=== PATIENT | male | born 1960 | race Caucasian/White ===

== ENCOUNTER 2016-10-26 21:35 | Emergency (ER) | payer OTHER ==
[2016-10-26 21:44] VITALS: RESP 18
[2016-10-27] MEDS ORDERED: SODIUM CHLORIDE 0.9% 1,000 ML IV STA (00:22)
[2016-10-27] MEDS ORDERED: ONDANSETRON 4 MG/2 ML VIAL IVP STA (00:22)
[2016-10-27] MEDS ORDERED: KETOROLAC 30 MG/ML 1 ML VIAL IVP STA (00:22)
[2016-10-27 00:58] LABS: Appearance,Urine Clear (Clear); Bilirubin,Urine Negative (Negative); Glucose,Urine (UA) Negative (Negative); Ketones,Urine Negative (Negative); Leukocyte Esterase,Urine Negative (Negative); Nitrite,Urine Negative (Negative); Protein,Urine Negative (Negative); UA Billing (MACRO vs. MICRO) CHEM; Urobilinogen,Urine <2.0 mg/dL (<2.0)
--- NOTE | 2016-10-27 00:58 | XR ---
EXAM: XR Abdomen, 1 View. CLINICAL HISTORY: Reason: abdominal pain TECHNIQUE: Frontal supine view of the abdomen/pelvis. COMPARISON: None FINDINGS: Hardware: None. Abdomen: Nonobstructive bowel gas pattern. No free air. No abnormal calcifications noted. Bones: No acute osseous abnormality. Soft tissues: Normal. Lower chest: Normal. IMPRESSION: No acute abnormality.
[2016-10-27 00:59] LABS: Basophils # (A) 0.1 k/uL (0-0.2); Basophils % (A) 1 %; CH 31.1; CHCM 34.1; Eosinophils # (A) 0.5 k/uL (0-0.7); Eosinophils % (A) 6 %; HCT 42.6 % (39.0-53.0); HDW 2.28; HGB 14.2 gm/dL (13.0-17.5); Luc # (Auto) 0.23; Luc % (Auto) 3; Lymphocytes # (A) 3.3 k/uL (1.0-4.8); Lymphocytes % (A) 41 %; MCH 30.6 pg (25.0-35.0); MCHC 33.4 g/dL (31.0-37.0); MCV 91.5 fL (80.0-100.0); Mean Platelet Volume 6.6; Monocytes # (A) 0.5 k/uL (0-1.0); Monocytes % (A) 6 %; Neutrophils # (A) 3.6 k/uL (1.3-7.7); Neutrophils % (A) 44 %; RBC 4.65 m/uL (4.30-5.90); RDW 12.8 % (11.5-15.5); WBC 8.1 k/uL (3.8-10.6); WBC (Perox) 8.08
[2016-10-27 01:08] LABS: ALT 29 U/L (21-72); AST 24 U/L (17-59); Alkaline Phosphatase 64 U/L (38-126); Amylase 63 U/L (30-110); Anion Gap 9 mmol/L; Blood Urea Nitrogen 17 mg/dL (9-20); Calcium 9.7 mg/dL (8.4-10.2); Carbon Dioxide 27 mmol/L (22-30); Chloride 105 mmol/L (98-107); Glucose 99 mg/dL (74-99); Non-African American GFR(MDRD) >60 (>60 ml/min/1.73 sqM); Potassium 4.4 mmol/L (3.5-5.1); Sodium 141 mmol/L (137-145); Total Bilirubin 0.3 mg/dL (0.2-1.3); Total Protein 6.6 g/dL (6.3-8.2)
--- NOTE | 2016-10-27 01:26 | ED ---
Abdominal Pain HPI - General Chief Complaint: Abdominal Pain Stated Complaint: Flank/Chest Pain Time Seen by Provider: 10/27/16 00:22 Source: patient, RN notes reviewed Mode of arrival: ambulatory Limitations: no limitations - History of Present Illness Initial Comments: Patient is a 56-year-old male with chief complaint of lower back pain for approximately 4 days. Patient reports that it seems to be bilateral kidney area. Patient states that occasionally will radiate down towards the groin. Patient denies any fever or chills. Denies any difficulty urinating since his leg slightly cloudy. Denies any nausea or vomiting. Denies any chest pain or shortness of breath. - Related Data Previous Rx's Medication Instructions Recorded Albuterol Inhaler [Ventolin Hfa 1 - 2 puff INHALATION Q6HR PRN #1 08/26/15 Inhaler] inhaler Budesonide-Formot 160-4.5 Mcg 2 puff INHALATION BID #1 inhaler 08/26/15 [Symbicort 160-4.5 Mcg Inhaler] Omeprazole [PriLOSEC] 40 mg PO AC-BRKFST #30 cap 08/26/15 Tiotropium [place] [Spiriva] 1 puff IH DAILY #30 cap.w.dev 08/26/15 Vancomycin Oral Solution 250 mg PO Q6HR 10 Days 08/26/15 oxyCODONE HCL/ACETAMINOPHEN 1 tab PO Q6HR PRN #20 tab 08/26/15 [Percocet 5-325 mg] Acetaminophen-Codeine 300-30mg 1 tab PO Q6H PRN #12 tablet 10/27/16 [Tylenol #3] Allergies Allergy/AdvReac Type Severity Reaction Status Date / Time No Known Allergies Allergy Verified 10/26/16 21:44 Review of Systems ROS Statement: Those systems with pertinent positive or pertinent negative responses have been documented in the HPI. ROS Other: All systems not noted in ROS Statement are negative. Past Medical History Past Medical History: No Reported History Additional Past Medical History / Comment(s): Chronic Bronchitis History of Any Multi-Drug Resistant Organisms: None Reported Past Surgical History: Appendectomy Additional Past Surgical History / Comment(s): hand Past Psychological History: No Psychological Hx Reported Smoking Status: Light tobacco smoker Past Alcohol Use History: None Reported Past Drug Use History: Marijuana General Exam - General Exam Comments Initial Comments: Pleasant 56-year-old male. No distress. Limitations: no limitations General appearance: alert, in no apparent distress Head exam: Present: atraumatic, normocephalic, normal inspection Eye exam: Present: normal appearance, PERRL, EOMI. Absent: scleral icterus, conjunctival injection, periorbital swelling ENT exam: Present: normal oropharynx Neck exam: Present: normal inspection. Absent: tenderness, meningismus, lymphadenopathy Respiratory exam: Present: normal lung sounds bilaterally. Absent: respiratory distress, wheezes, rales, rhonchi, stridor Cardiovascular Exam: Present: regular rate, normal rhythm, normal heart sounds. Absent: systolic murmur, diastolic murmur, rubs, gallop, clicks GI/Abdominal exam: Present: soft, normal bowel sounds. Absent: distended, tenderness, guarding, rebound, rigid Extremities exam: Present: normal inspection, full ROM, normal capillary refill. Absent: tenderness, pedal edema, joint swelling, calf tenderness Back exam: Present: normal inspection Neurological exam: Present: alert, oriented X3, CN II-XII intact Psychiatric exam: Present: normal affect, normal mood Skin exam: Present: warm, dry, intact, normal color. Absent: rash Course Vital Signs 10/26/16 10/27/16 10/27/16 21:41 00:40 02:25 Temperature 97.5 F L 97.5 F L 97.6 F Pulse Rate 64 71 58 L Respiratory 18 18 18 Rate Blood Pressure 122/81 116/73 109/62 O2 Sat by Pulse 95 97 94 L Oximetry Medical Decision Making - Medical Decision Making Patient is 56-year-old 4 days of lower back pain. All labs are reviewed and are negative. Patient's urinalysis is negative for hematuria. Patient reports that he is feeling better after taking these at home Tylenol. Discussed the case with Dr. [place]. Patient likely has a muscle spasm or muscle related issue given the fact that his labs are normal negative. Discussed close follow-up with primary care provider with patient. Patient agrees to plan will comply. Return parameters were discussed. - Lab Data Result diagrams: 10/27/16 00:43 10/27/16 00:43 Lab Results 10/27/16 10/27/16 10/27/16 Range/Units 00:43 00:43 00:43 WBC 8.1 (3.8-10.6) k/uL RBC 4.65 (4.30-5.90) m/uL Hgb 14.2 (13.0-17.5) gm/dL Hct 42.6 (39.0-53.0) % MCV 91.5 (80.0-100.0) fL MCH 30.6 (25.0-35.0) pg MCHC 33.4 (31.0-37.0) g/dL RDW 12.8 (11.5-15.5) % Plt Count 238 (150-450) k/uL Neutrophils % 44 % Lymphocytes % 41 % Monocytes % 6 % Eosinophils % 6 % Basophils % 1 % Neutrophils # 3.6 (1.3-7.7) k/uL Lymphocytes # 3.3 (1.0-4.8) k/uL Monocytes # 0.5 (0-1.0) k/uL Eosinophils # 0.5 (0-0.7) k/uL Basophils # 0.1 (0-0.2) k/uL Sodium 141 (137-145) mmol/L Potassium 4.4 (3.5-5.1) mmol/L Chloride 105 (98-107) mmol/L Carbon Dioxide 27 (22-30) mmol/L Anion Gap 9 mmol/L BUN 17 (9-20) mg/dL Creatinine 0.70 (0.66-1.25) mg/dL Est GFR (MDRD) Af Amer >60 (>60 ml/min/1.73 sqM) Est GFR (MDRD) Non-Af >60 (>60 ml/min/1.73 sqM) Glucose 99 (74-99) mg/dL Calcium 9.7 (8.4-10.2) mg/dL Total Bilirubin 0.3 (0.2-1.3) mg/dL AST 24 (17-59) U/L ALT 29 (21-72) U/L Alkaline Phosphatase 64 (38-126) U/L Total Protein 6.6 (6.3-8.2) g/dL Albumin 3.8 (3.5-5.0) g/dL Amylase 63 (30-110) U/L Lipase 157 (23-300) U/L Urine Color Yellow Urine Appearance Clear (Clear) Urine pH 6.0 (5.0-8.0) Ur Specific [place] 1.020 (1.001-1.035) Urine Protein Negative (Negative) Urine Glucose (UA) Negative (Negative) Urine Ketones Negative (Negative) Urine Blood Negative (Negative) Urine Nitrite Negative (Negative) Urine Bilirubin Negative (Negative) Urine Urobilinogen <2.0 (<2.0) mg/dL Ur Leukocyte Esterase Negative (Negative) Disposition Clinical Impression: Lower back pain Disposition: HOME SELF-CARE Condition: Good Instructions: Acute Low Back Pain (ED) Additional Instructions: Patient has a follow-up with primary care provider in one to 2 days. Return to the emergency department if any alarming signs or symptoms occur. Prescriptions: Acetaminophen-Codeine 300-30mg [Tylenol #3] 1 tab PO Q6H PRN #12 tablet PRN Reason: Pain Referrals: Domo Zarco MD [Primary Care Provider] - 1-2 days Time of Disposition: 02:12
[2016-10-27 02:26] VITALS: BP 109/62; PULSE 58; TEMP 97.6
== END 2016-10-27 02:26 | disposition home or self-care (01) ==
LOC: EC 21:35
DX: M54.5 Low back pain (principal); R10.30 Lower abdominal pain, unspecified; F17.200 Nicotine dependence, unspecified, uncomplicated; Z90.49 Acquired absence of other specified parts of digestive tract
CPT/HCPCS: 36415; 80053; 82150; 83690; 85025; 81003; 74000; 99284; 96374; 96375; 96361 ×2; J2405; J1885

== ENCOUNTER 2018-02-18 00:30 | Emergency (ER) | payer OTHER ==
[2018-02-18 00:37] VITALS: TEMP 98.1
[2018-02-18] MEDS ORDERED: ASPIRIN 81 MG PO STA (00:51)
[2018-02-18 01:02] LABS: Basophils % (A) 1 %; Eosinophils # (A) 0.5 k/uL (0-0.7); Eosinophils % (A) 6 %; HCT 37.6 % (39.0-53.0); Lymphocytes # (A) 2.5 k/uL (1.0-4.8); Lymphocytes % (A) 31 %; MCHC 34.6 g/dL (31.0-37.0); MCV 86.7 fL (80.0-100.0); Mean Platelet Volume 6.9; Monocytes # (A) 0.6 k/uL (0-1.0); Monocytes % (A) 7 %; Neutrophils # (A) 4.3 k/uL (1.3-7.7); Neutrophils % (A) 53 %; Platelet Count 247 k/uL (150-450); RBC 4.33 m/uL (4.30-5.90); RDW 12.7 % (11.5-15.5)
[2018-02-18 01:11] LABS: ALT 31 U/L (21-72); AST 27 U/L (17-59); Albumin 3.8 g/dL (3.5-5.0); Alkaline Phosphatase 65 U/L (38-126); Anion Gap 6 mmol/L; Blood Urea Nitrogen 18 mg/dL (9-20); Calcium 9.5 mg/dL (8.4-10.2); Carbon Dioxide 26 mmol/L (22-30); Chloride 107 mmol/L (98-107); Glucose 97 mg/dL (74-99); Magnesium 1.9 mg/dL (1.6-2.3); Sodium 139 mmol/L (137-145); Total Bilirubin 0.2 mg/dL (0.2-1.3); Total Protein 6.2 g/dL (6.3-8.2)
--- NOTE | 2018-02-18 01:12 | XR ---
EXAMINATION TYPE: XR chest 2V DATE OF EXAM: 02/18/2018 COMPARISON: 08/24/2015 HISTORY: Neck pain TECHNIQUE: Frontal and lateral views of the chest are obtained. FINDINGS: Heart and mediastinum are normal. Lungs are clear of consolidation. There is mild reticula r density in the left lower lobe. There is no pleural effusion. Pulmonary vascularity is normal. IMPRESSION: There is new minimal infiltrate in the left lower lobe compared to old exam. Normal hear t.
[2018-02-18 01:14] LABS: Partial Thromboplastin Time 23.3 sec (22.0-30.0); Prothrombin Time 9.8 sec (9.0-12.0)
--- NOTE | 2018-02-18 01:21 | ED ---
General Adult HPI - General Chief complaint: Chest Pain Stated complaint: NECK,BACK,SHOULDER PAIN, GENA Source: patient Mode of arrival: wheelchair Limitations: no limitations - History of Present Illness Initial comments: Dictation was produced using [employer] dictation software. please excuse any grammatical, word or spelling errors. Chief Complaint: 57-year-old male past medical history of COPD, chronic bronchitis presents with left-sided neck pain. History of Present Illness: Patient states he is having neck pain symptoms for the past day. Patient states he woke up with the symptoms. States the symptoms are worse with movement and palpation to the left trapezius area. Patient is a radiates to his left shoulder and left distress. He has no history of coronary artery disease or HI. The ROS documented in this emergency department record has been reviewed and confirmed by me. Those systems with pertinent positive or negative responses have been documented in the HPI. All other systems are other negative and/or noncontributory. - Related Data Previous Rx's Medication Instructions Recorded Albuterol Inhaler [Ventolin Hfa 1 - 2 puff INHALATION Q6HR PRN #1 08/26/15 Inhaler] inhaler Budesonide-Formot 160-4.5 Mcg 2 puff INHALATION BID #1 inhaler 08/26/15 [Symbicort 160-4.5 Mcg Inhaler] Omeprazole [PriLOSEC] 40 mg PO AC-BRKFST #30 cap 08/26/15 Tiotropium [place] [Spiriva] 1 puff IH DAILY #30 cap.w.dev 08/26/15 Vancomycin Oral Solution 250 mg PO Q6HR 10 Days ml 08/26/15 oxyCODONE HCL/ACETAMINOPHEN 1 tab PO Q6HR PRN #20 tab 08/26/15 [Percocet 5-325 mg] Acetaminophen-Codeine 300-30mg 1 tab PO Q6H PRN #12 tablet 10/27/16 [Tylenol #3] Albuterol Inhaler [Ventolin Hfa 1 - 2 puff INHALATION RT-Q6H PRN 02/18/18 Inhaler] #1 inhaler Azithromycin [Zithromax] 250 mg PO DAILY 4 Days #4 tab 02/18/18 Cyclobenzaprine HCl 10 mg PO TID PRN #20 tab 02/18/18 Allergies Allergy/AdvReac Type Severity Reaction Status Date / Time No Known Allergies Allergy Verified 02/18/18 00:37 Review of Systems ROS Statement: Those systems with pertinent positive or pertinent negative responses have been documented in the HPI. ROS Other: All systems not noted in ROS Statement are negative. Past Medical History Past Medical History: No Reported History Additional Past Medical History / Comment(s): Chronic Bronchitis History of Any Multi-Drug Resistant Organisms: None Reported Past Surgical History: Appendectomy Additional Past Surgical History / Comment(s): hand Past Psychological History: No Psychological Hx Reported Smoking Status: Former smoker Past Alcohol Use History: None Reported Past Drug Use History: Marijuana General Exam - General Exam Comments Initial Comments: PHYSICAL EXAM: General Impression: Alert and oriented x3, not in acute distress HEENT: Normocephalic atraumatic, extra-ocular movements intact, pupils equal and reactive to light bilaterally, mucous membranes moist, tenderness to palpation over the left lateral neck that is reproducible. Cardiovascular: Heart regular rate and rhythm, S1&S2 audible, no murmurs, rubs or gallops Chest: Mild end expiratory wheezing Abdomen: Bowel sounds present, abdomen soft, non-tender, non-distended, no organomegaly Musculoskeletal: Pulses present and equal in all extremities, no peripheral edema Motor: Power 5/5 bilaterally, no focal deficits noted Neurological: CN II-XII grossly intact, no focal motor or sensory deficits noted Skin: Intact with no visualized rashes Psych: Normal affect and mood Limitations: no limitations Course Vital Signs 02/18/18 02/18/18 02/18/18 00:35 02:40 03:20 Temperature 98.1 F Pulse Rate 64 51 L 51 L Respiratory 18 16 18 Rate Blood Pressure 144/83 158/88 147/97 O2 Sat by Pulse 97 97 100 Oximetry Medical Decision Making - Medical Decision Making ED course: 57-year-old male presents with left-sided neck pain. Vital signs upon arrival are within acceptable limits Laboratory evaluation obtained. CBC is unremarkable. Coag panel unremarkable. Metabolic panel is negative. Cardiac enzymes are negative. Chest x-ray obtained showing infiltrate in the left lower lobe. More history obtained, patient complaining of mild worsening of cough and sputum production. Patient does have a history of extensive COPD. Patient given multiple medications for next spasms. She is noncompliant with his medication. Patient given azithromycin first dose. Albuterol inhaler refilled. Patient given corticosteroids. Obstruction provided for Medrol Dosepak. Patient observed emergency Department with improvement of his neck spasm symptoms. He is discharged and instructed to follow-up with primary care physician. Serial EKGs were benign. EKG Interpretation: A 12 lead EKG was obtained. It was interpreted by myself and attending physician. There is a P wave before every QRS complex. Rate is 49. Rhythm is normal sinus rhythm, [place] interval 140, QS 108, QTC 41. QT is not prolonged. No ST segment depression or elevation. Overall, this EKG is unremarkable - Lab Data Result diagrams: 02/18/18 00:42 02/18/18 00:42 Lab Results 02/18/18 02/18/18 02/18/18 Range/Units 00:42 00:42 00:42 WBC 8.0 (3.8-10.6) k/uL RBC 4.33 (4.30-5.90) m/uL Hgb 13.0 (13.0-17.5) gm/dL Hct 37.6 L (39.0-53.0) % MCV 86.7 (80.0-100.0) fL MCH 30.0 (25.0-35.0) pg MCHC 34.6 (31.0-37.0) g/dL RDW 12.7 (11.5-15.5) % Plt Count 247 (150-450) k/uL Neutrophils % 53 % Lymphocytes % 31 % Monocytes % 7 % Eosinophils % 6 % Basophils % 1 % Neutrophils # 4.3 (1.3-7.7) k/uL Lymphocytes # 2.5 (1.0-4.8) k/uL Monocytes # 0.6 (0-1.0) k/uL Eosinophils # 0.5 (0-0.7) k/uL Basophils # 0.0 (0-0.2) k/uL PT (9.0-12.0) sec INR (<1.2) APTT (22.0-30.0) sec Sodium 139 (137-145) mmol/L Potassium 4.0 (3.5-5.1) mmol/L Chloride 107 (98-107) mmol/L Carbon Dioxide 26 (22-30) mmol/L Anion Gap 6 mmol/L BUN 18 (9-20) mg/dL Creatinine 0.70 (0.66-1.25) mg/dL Est GFR (CKD-EPI)AfAm >90 (>60 ml/min/1.73 sqM) Est GFR (CKD-EPI)NonAf >90 (>60 ml/min/1.73 sqM) Glucose 97 (74-99) mg/dL Calcium 9.5 (8.4-10.2) mg/dL Magnesium 1.9 (1.6-2.3) mg/dL Total Bilirubin 0.2 (0.2-1.3) mg/dL AST 27 (17-59) U/L ALT 31 (21-72) U/L Alkaline Phosphatase 65 (38-126) U/L Total Creatine Kinase 148 (55-170) U/L CK-MB (CK-2) 2.5 H* (0.0-2.4) ng/mL CK-MB (CK-2) Rel Index 1.7 Troponin I <0.012 (0.000-0.034) ng/mL Total Protein 6.2 L (6.3-8.2) g/dL Albumin 3.8 (3.5-5.0) g/dL 02/18/18 Range/Units 00:42 WBC (3.8-10.6) k/uL RBC (4.30-5.90) m/uL Hgb (13.0-17.5) gm/dL Hct (39.0-53.0) % MCV (80.0-100.0) fL MCH (25.0-35.0) pg MCHC (31.0-37.0) g/dL RDW (11.5-15.5) % Plt Count (150-450) k/uL Neutrophils % % Lymphocytes % % Monocytes % % Eosinophils % % Basophils % % Neutrophils # (1.3-7.7) k/uL Lymphocytes # (1.0-4.8) k/uL Monocytes # (0-1.0) k/uL Eosinophils # (0-0.7) k/uL Basophils # (0-0.2) k/uL PT 9.8 (9.0-12.0) sec INR 1.0 (<1.2) APTT 23.3 (22.0-30.0) sec Sodium (137-145) mmol/L Potassium (3.5-5.1) mmol/L Chloride (98-107) mmol/L Carbon Dioxide (22-30) mmol/L Anion Gap mmol/L BUN (9-20) mg/dL Creatinine (0.66-1.25) mg/dL Est GFR (CKD-EPI)AfAm (>60 ml/min/1.73 sqM) Est GFR (CKD-EPI)NonAf (>60 ml/min/1.73 sqM) Glucose (74-99) mg/dL Calcium (8.4-10.2) mg/dL Magnesium (1.6-2.3) mg/dL Total Bilirubin (0.2-1.3) mg/dL AST (17-59) U/L ALT (21-72) U/L Alkaline Phosphatase (38-126) U/L Total Creatine Kinase (55-170) U/L CK-MB (CK-2) (0.0-2.4) ng/mL CK-MB (CK-2) Rel Index Troponin I (0.000-0.034) ng/mL Total Protein (6.3-8.2) g/dL Albumin (3.5-5.0) g/dL Disposition Clinical Impression: Pneumonia, COPD with acute exacerbation, Neck strain Disposition: HOME SELF-CARE Condition: Fair Instructions: Cervical Strain (ED) Prescriptions: Albuterol Inhaler [Ventolin Hfa Inhaler] 1 - 2 puff INHALATION RT-Q6H PRN #1 inhaler PRN Reason: Shortness Of Breath Azithromycin [Zithromax] 250 mg PO DAILY 4 Days #4 tab Cyclobenzaprine HCl 10 mg PO TID PRN #20 tab PRN Reason: Spasms Is patient prescribed a controlled substance at d/c from ED?: No Referrals: Domo Zarco MD [Primary Care Provider] - 1-2 days Time of Disposition: 03:55
[2018-02-18 01:23] LABS: Creatine Kinase 148 U/L (55-170)
[2018-02-18 01:36] LABS: Troponin I <0.012 ng/mL (0.000-0.034)
[2018-02-18 01:48] LABS: Creatine Kinase MB 2.5 ng/mL (0.0-2.4)
[2018-02-18] MEDS ORDERED: fentaNYL (PF) 50 MCG/ML 2 ML AMP IVP STA (01:59)
[2018-02-18] MEDS ORDERED: CYCLOBENZAPRINE 10 MG TAB PO STA (02:34)
[2018-02-18 02:42] VITALS: PULSE 51
[2018-02-18] MEDS ORDERED: MORPHINE SULFATE 4 MG/ML SYRINGE IVP PRN (03:29)
[2018-02-18 03:44] VITALS: BP 147/97; RESP 18
[2018-02-18] MEDS ORDERED: AZITHROMYCIN 500 MG TAB PO STA (03:47)
[2018-02-18] MEDS ORDERED: LIDOCAINE 5% PATCH TOPICAL SCH (09:00)
== END 2018-02-18 04:07 | disposition home or self-care (01) ==
LOC: EC 00:30
DX: S16.1XXA Strain of muscle, fascia and tendon at neck level, initial encounter (principal); J44.1 Chronic obstructive pulmonary disease with (acute) exacerbation; J44.0 Chronic obstructive pulmonary disease with (acute) lower respiratory infection; J18.9 Pneumonia, unspecified organism; Z90.49 Acquired absence of other specified parts of digestive tract; Z87.891 Personal history of nicotine dependence
CPT/HCPCS: 36415; 93005; 80053; 82550; 82553; 83735; 84484; 85025; 85610; 85730; 71046; 99285; 96374; 96375; J2270; J3010

== ENCOUNTER 2018-05-08 09:59 | Emergency (ER) | payer OTHER ==
[2018-05-08 10:06] VITALS: TEMP 97.6
[2018-05-08] MEDS ORDERED: IPRATROPIUM-ALBUTEROL 3 ML NEB INHALATION STA (10:18)
[2018-05-08] MEDS ORDERED: methylPREDNISolone SOD SUCCI 125 MG/2 ML VIAL IV STA (10:18)
[2018-05-08] MEDS ORDERED: SODIUM CHLORIDE 0.9% 1,000 ML IV STA (10:18)
--- NOTE | 2018-05-08 10:20 | ED ---
General Adult HPI - General Chief complaint: Shortness of Breath Stated complaint: Sob Time Seen by Provider: 05/08/18 10:12 Source: patient, RN notes reviewed Mode of arrival: ambulatory Limitations: no limitations - History of Present Illness Initial comments: Patient is a pleasant 58-year-old male presenting to the emergency Department with complaints of dyspnea. Patient states he had pneumonia back in February and has been having dyspnea since that time. Symptoms have worsened over the past week. Patient does have coughing episodes with occasional yellow sputum. Patient gets sweaty at nighttime. Unclear if he is having any fevers otherwise. Patient states it is uncomfortable to cough, otherwise no chest pain. No leg pain or leg swelling. Patient is a former smoker. - Related Data Previous Rx's Medication Instructions Recorded Albuterol Inhaler [Ventolin Hfa 1 - 2 puff INHALATION Q6HR PRN #1 08/26/15 Inhaler] inhaler Budesonide-Formot 160-4.5 Mcg 2 puff INHALATION BID #1 inhaler 08/26/15 [Symbicort 160-4.5 Mcg Inhaler] Omeprazole [PriLOSEC] 40 mg PO AC-BRKFST #30 cap 08/26/15 Tiotropium [place] [Spiriva] 1 puff IH DAILY #30 cap.w.dev 08/26/15 Vancomycin Oral Solution 250 mg PO Q6HR 10 Days ml 08/26/15 oxyCODONE HCL/ACETAMINOPHEN 1 tab PO Q6HR PRN #20 tab 08/26/15 [Percocet 5-325 mg] Acetaminophen-Codeine 300-30mg 1 tab PO Q6H PRN #12 tablet 10/27/16 [Tylenol #3] Albuterol Inhaler [Ventolin Hfa 1 - 2 puff INHALATION RT-Q6H PRN 02/18/18 Inhaler] #1 inhaler Azithromycin [Zithromax] 250 mg PO DAILY 4 Days #4 tab 02/18/18 Cyclobenzaprine HCl 10 mg PO TID PRN #20 tab 02/18/18 Azithromycin [Zithromax Z-pack] 250 mg PO DIRECTED #6 tab 05/08/18 predniSONE 20 mg PO BID #10 tab 05/08/18 Allergies Allergy/AdvReac Type Severity Reaction Status Date / Time No Known Allergies Allergy Verified 02/18/18 00:37 Review of Systems ROS Statement: Those systems with pertinent positive or pertinent negative responses have been documented in the HPI. ROS Other: All systems not noted in ROS Statement are negative. Constitutional: Reports: as per HPI Eyes: Denies: eye pain ENT: Denies: ear pain Respiratory: Reports: as per HPI, cough, dyspnea Cardiovascular: Denies: palpitations Endocrine: Denies: fatigue Gastrointestinal: Denies: abdominal pain Genitourinary: Denies: dysuria Musculoskeletal: Denies: back pain Skin: Denies: rash Neurological: Denies: weakness Past Medical History Past Medical History: COPD, Pneumonia Additional Past Medical History / Comment(s): Chronic Bronchitis History of Any Multi-Drug Resistant Organisms: None Reported Past Surgical History: Appendectomy, Orthopedic Surgery Additional Past Surgical History / Comment(s): hand Past Psychological History: No Psychological Hx Reported Smoking Status: Former smoker Past Alcohol Use History: Rare Past Drug Use History: None Reported General Exam Limitations: no limitations General appearance: alert, in no apparent distress Head exam: Present: atraumatic Eye exam: Present: normal appearance, PERRL Neck exam: Present: normal inspection Respiratory exam: Present: wheezes, decreased breath sounds Cardiovascular Exam: Present: regular rate, normal rhythm GI/Abdominal exam: Present: soft. Absent: tenderness Extremities exam: Present: normal inspection. Absent: pedal edema, calf tenderness Neurological exam: Present: alert Psychiatric exam: Present: normal affect, normal mood Skin exam: Present: normal color Course Vital Signs 05/08/18 05/08/18 05/08/18 10:02 10:30 10:31 Temperature 97.6 F Pulse Rate 93 73 72 Respiratory 18 15 Rate Blood Pressure 133/80 125/82 O2 Sat by Pulse 95 96 Oximetry 05/08/18 05/08/18 10:36 11:00 Temperature Pulse Rate 77 90 Respiratory 13 Rate Blood Pressure 124/94 O2 Sat by Pulse 96 Oximetry EKG Findings - EKG Comments: EKG Findings:: Normal sinus rhythm 78. [place] 128. QRS 108. QT 378. QTC 4:30. Normal axis. Normal QRS. No acute ST change Medical Decision Making - Medical Decision Making Patient reevaluated and resting comfortably in bed. Patient is breathing much better and is comfortable with discharge home. Lung sounds with good air exchange. There is still mild wheezing. - Lab Data Result diagrams: 05/08/18 10:34 05/08/18 10:34 Lab Results 05/08/18 05/08/18 05/08/18 Range/Units 10:34 10:34 10:34 WBC 5.7 (3.8-10.6) k/uL RBC 4.91 (4.30-5.90) m/uL Hgb 14.6 (13.0-17.5) gm/dL Hct 43.9 (39.0-53.0) % MCV 89.3 (80.0-100.0) fL MCH 29.7 (25.0-35.0) pg MCHC 33.3 (31.0-37.0) g/dL RDW 13.0 (11.5-15.5) % Plt Count 244 (150-450) k/uL Neutrophils % 58 % Lymphocytes % 20 % Monocytes % 7 % Eosinophils % 10 % Basophils % 1 % Neutrophils # 3.3 (1.3-7.7) k/uL Lymphocytes # 1.1 (1.0-4.8) k/uL Monocytes # 0.4 (0-1.0) k/uL Eosinophils # 0.6 (0-0.7) k/uL Basophils # 0.1 (0-0.2) k/uL PT (9.0-12.0) sec INR (<1.2) APTT (22.0-30.0) sec Sodium 137 (137-145) mmol/L Potassium 4.1 (3.5-5.1) mmol/L Chloride 104 (98-107) mmol/L Carbon Dioxide 26 (22-30) mmol/L Anion Gap 7 mmol/L BUN 18 (9-20) mg/dL Creatinine 0.63 L (0.66-1.25) mg/dL Est GFR (CKD-EPI)AfAm >90 (>60 ml/min/1.73 sqM) Est GFR (CKD-EPI)NonAf >90 (>60 ml/min/1.73 sqM) Glucose 122 H (74-99) mg/dL Calcium 9.4 (8.4-10.2) mg/dL Total Bilirubin 0.4 (0.2-1.3) mg/dL AST 39 (17-59) U/L ALT 32 (21-72) U/L Alkaline Phosphatase 60 (38-126) U/L Total Creatine Kinase 311 H (55-170) U/L CK-MB (CK-2) 3.4 H (0.0-2.4) ng/mL CK-MB (CK-2) Rel Index 1.1 Troponin I <0.012 (0.000-0.034) ng/mL Total Protein 6.6 (6.3-8.2) g/dL Albumin 3.8 (3.5-5.0) g/dL 05/08/18 Range/Units 10:34 WBC (3.8-10.6) k/uL RBC (4.30-5.90) m/uL Hgb (13.0-17.5) gm/dL Hct (39.0-53.0) % MCV (80.0-100.0) fL MCH (25.0-35.0) pg MCHC (31.0-37.0) g/dL RDW (11.5-15.5) % Plt Count (150-450) k/uL Neutrophils % % Lymphocytes % % Monocytes % % Eosinophils % % Basophils % % Neutrophils # (1.3-7.7) k/uL Lymphocytes # (1.0-4.8) k/uL Monocytes # (0-1.0) k/uL Eosinophils # (0-0.7) k/uL Basophils # (0-0.2) k/uL PT 9.8 (9.0-12.0) sec INR 1.0 (<1.2) APTT 23.2 (22.0-30.0) sec Sodium (137-145) mmol/L Potassium (3.5-5.1) mmol/L Chloride (98-107) mmol/L Carbon Dioxide (22-30) mmol/L Anion Gap mmol/L BUN (9-20) mg/dL Creatinine (0.66-1.25) mg/dL Est GFR (CKD-EPI)AfAm (>60 ml/min/1.73 sqM) Est GFR (CKD-EPI)NonAf (>60 ml/min/1.73 sqM) Glucose (74-99) mg/dL Calcium (8.4-10.2) mg/dL Total Bilirubin (0.2-1.3) mg/dL AST (17-59) U/L ALT (21-72) U/L Alkaline Phosphatase (38-126) U/L Total Creatine Kinase (55-170) U/L CK-MB (CK-2) (0.0-2.4) ng/mL CK-MB (CK-2) Rel Index Troponin I (0.000-0.034) ng/mL Total Protein (6.3-8.2) g/dL Albumin (3.5-5.0) g/dL - Radiology Data Radiology results: image reviewed (Chest x-ray shows no acute process) Disposition Clinical Impression: COPD with acute exacerbation Disposition: HOME SELF-CARE Condition: Stable Instructions: COPD (Chronic Obstructive Pulmonary Disease) (ED) Additional Instructions: Please follow-up with primary care physician in the next day or 2 for recheck. Return for difficulty breathing, fevers, worsening or changing symptoms or other concerns. Prescriptions: Azithromycin [Zithromax Z-pack] 250 mg PO DIRECTED #6 tab predniSONE 20 mg PO BID #10 tab Is patient prescribed a controlled substance at d/c from ED?: No Referrals: Domo Zarco MD [Primary Care Provider] - 1-2 days Time of Disposition: 11:39
[2018-05-08 10:55] LABS: Basophils # (A) 0.1 k/uL (0-0.2); Basophils % (A) 1 %; Eosinophils # (A) 0.6 k/uL (0-0.7); Eosinophils % (A) 10 %; HCT 43.9 % (39.0-53.0); HGB 14.6 gm/dL (13.0-17.5); Lymphocytes # (A) 1.1 k/uL (1.0-4.8); Lymphocytes % (A) 20 %; MCH 29.7 pg (25.0-35.0); MCHC 33.3 g/dL (31.0-37.0); MCV 89.3 fL (80.0-100.0); Mean Platelet Volume 6.3; Monocytes # (A) 0.4 k/uL (0-1.0); Monocytes % (A) 7 %; Neutrophils # (A) 3.3 k/uL (1.3-7.7); Neutrophils % (A) 58 %; Platelet Count 244 k/uL (150-450); RBC 4.91 m/uL (4.30-5.90); WBC 5.7 k/uL (3.8-10.6)
[2018-05-08 11:03] LABS: Partial Thromboplastin Time 23.2 sec (22.0-30.0); Prothrombin Time 9.8 sec (9.0-12.0)
[2018-05-08 11:05] LABS: ALT 32 U/L (21-72); AST 39 U/L (17-59); Albumin 3.8 g/dL (3.5-5.0); Alkaline Phosphatase 60 U/L (38-126); Anion Gap 7 mmol/L; Blood Urea Nitrogen 18 mg/dL (9-20); Calcium 9.4 mg/dL (8.4-10.2); Carbon Dioxide 26 mmol/L (22-30); Chloride 104 mmol/L (98-107); Glucose 122 mg/dL (74-99); Potassium 4.1 mmol/L (3.5-5.1); Sodium 137 mmol/L (137-145); Total Bilirubin 0.4 mg/dL (0.2-1.3); Total Protein 6.6 g/dL (6.3-8.2)
[2018-05-08 11:10] LABS: Creatine Kinase 311 U/L (55-170)
[2018-05-08 11:23] LABS: Creatine Kinase MB 3.4 ng/mL (0.0-2.4); Troponin I <0.012 ng/mL (0.000-0.034)
--- NOTE | 2018-05-08 11:32 | XR ---
EXAMINATION TYPE: XR chest 2V DATE OF EXAM: 05/08/2018 HISTORY: difficulty breathing. REFERENCE: Previous study dated 02/18/2018. FINDINGS: The lungs are overinflated. The lungs appear clear. Pleural space are clear. The heart is n ot enlarged. IMPRESSION: COPD.
[2018-05-08 11:58] VITALS: BP 120/77; PULSE 71; RESP 16
== END 2018-05-08 11:59 | disposition home or self-care (01) ==
LOC: EC 09:59
DX: J44.1 Chronic obstructive pulmonary disease with (acute) exacerbation (principal); Z87.891 Personal history of nicotine dependence
CPT/HCPCS: 99285; 96374; 96361; 36415; 94640; 93005; 80053; 82550; 82553; 84484; 85025; 85610; 85730; 71046; J2930

== ENCOUNTER 2019-07-24 18:49 | Emergency (ER) | payer OTHER ==
[2019-07-24 18:59] VITALS: RESP 20
[2019-07-24] MEDS ORDERED: SODIUM CHLORIDE 0.9% 1,000 ML IV STA (19:16)
[2019-07-24] MEDS ORDERED: IPRATROPIUM-ALBUTEROL 3 ML NEB INHALATION STA (19:16)
[2019-07-24] MEDS ORDERED: methylPREDNISolone SOD SUCCI 125 MG/2 ML VIAL IV STA (19:16)
--- NOTE | 2019-07-24 19:21 | ED ---
SOB HPI - General Chief Complaint: Shortness of Breath Stated Complaint: GENA Time Seen by Provider: 07/24/19 19:07 Source: patient, RN notes reviewed Mode of arrival: wheelchair Limitations: no limitations - History of Present Illness Initial Comments: This is a 58-year-old male who was a former smoker who quit 2 years ago who does have a history of lung disease who presents with complaints of several days of worsening shortness of breath in spite of using his home medication which did include steroids and nebulizer treatment. He did has some nonspecific anterior chest pain a tightness at he believes is secondary to the difficulty breathing. No overt phlegm production he has some sweats intermittently no chills. No other modifying factors he does state that he was recently had a cardiac again with a lot of people smoking even though he doesn't smoke anymore and he's not sure if this has had any effect on his current state. MD Complaint: shortness of breath, chest pain - Related Data Previous Rx's Medication Instructions Recorded Albuterol Inhaler [Ventolin Hfa 1 - 2 puff INHALATION Q6HR PRN #1 08/26/15 Inhaler] inhaler Budesonide-Formot 160-4.5 Mcg 2 puff INHALATION BID #1 inhaler 08/26/15 [Symbicort 160-4.5 Mcg Inhaler] Omeprazole [PriLOSEC] 40 mg PO AC-BRKFST #30 cap 08/26/15 Tiotropium [place] [Spiriva] 1 puff IH DAILY #30 cap.w.dev 08/26/15 Vancomycin Oral Solution 250 mg PO Q6HR 10 Days ml 08/26/15 oxyCODONE HCL/ACETAMINOPHEN 1 tab PO Q6HR PRN #20 tab 08/26/15 [Percocet 5-325 mg] Acetaminophen-Codeine 300-30mg 1 tab PO Q6H PRN #12 tablet 10/27/16 [Tylenol #3] Albuterol Inhaler [Ventolin Hfa 1 - 2 puff INHALATION RT-Q6H PRN 02/18/18 Inhaler] #1 inhaler Azithromycin [Zithromax] 250 mg PO DAILY 4 Days #4 tab 02/18/18 Cyclobenzaprine HCl 10 mg PO TID PRN #20 tab 02/18/18 Azithromycin [Zithromax Z-pack] 250 mg PO DIRECTED #6 tab 05/08/18 predniSONE 20 mg PO BID #10 tab 05/08/18 predniSONE 20 mg PO BID #10 tab 07/24/19 Allergies Allergy/AdvReac Type Severity Reaction Status Date / Time No Known Allergies Allergy Verified 07/24/19 18:58 Review of Systems ROS Statement: Those systems with pertinent positive or pertinent negative responses have been documented in the HPI. ROS Other: All systems not noted in ROS Statement are negative. Past Medical History Past Medical History: COPD, Pneumonia Additional Past Medical History / Comment(s): Chronic Bronchitis History of Any Multi-Drug Resistant Organisms: None Reported Past Surgical History: Appendectomy, Orthopedic Surgery Additional Past Surgical History / Comment(s): hand Past Psychological History: No Psychological Hx Reported Smoking Status: Former smoker Past Alcohol Use History: None Reported Past Drug Use History: None Reported General Exam - General Exam Comments Initial Comments: This is a well-developed well-nourished awake alert oriented 3 male Limitations: no limitations General appearance: alert, anxious Head exam: Present: atraumatic, normocephalic, normal inspection Eye exam: Present: normal appearance, PERRL, EOMI. Absent: scleral icterus, conjunctival injection, periorbital swelling ENT exam: Present: normal exam, mucous membranes moist Neck exam: Present: normal inspection. Absent: tenderness, meningismus, lymphadenopathy Respiratory exam: Present: decreased breath sounds. Absent: respiratory distress, wheezes, rales, rhonchi, stridor Cardiovascular Exam: Present: regular rate, normal rhythm, normal heart sounds. Absent: systolic murmur, diastolic murmur, rubs, gallop, clicks GI/Abdominal exam: Present: soft, normal bowel sounds. Absent: distended, tenderness, guarding, rebound, rigid Extremities exam: Present: normal inspection, full ROM, normal capillary refill. Absent: tenderness, pedal edema, joint swelling, calf tenderness Back exam: Present: normal inspection Neurological exam: Present: alert, oriented X3, CN II-XII intact Psychiatric exam: Present: normal affect, normal mood Skin exam: Present: warm, dry, intact, normal color. Absent: rash Course Vital Signs 07/24/19 07/24/19 07/24/19 18:54 19:39 19:44 Temperature 98.1 F Pulse Rate 66 71 75 Respiratory 20 Rate Blood Pressure 153/97 O2 Sat by Pulse 96 Oximetry - Reevaluation(s) Reevaluation #1: 07/24/19 20:24 This 80 is feeling improved at this time his saturation is in the mid 90s on room air. Medical Decision Making - Medical Decision Making Patient was able ably without difficulty maintaining his pulse ox in the mid 90s. He feels much improved he will be discharged he will be placed on oral steroids. He does have a DuoNeb at home for his updraft machine as well as a new inhaler. - Lab Data Result diagrams: 07/24/19 19:15 07/24/19 19:15 Lab Results 07/24/19 07/24/19 07/24/19 Range/Units 19:15 19:15 19:15 WBC 7.1 (3.8-10.6) k/uL RBC 5.08 (4.30-5.90) m/uL Hgb 15.2 (13.0-17.5) gm/dL Hct 46.2 (39.0-53.0) % MCV 91.0 (80.0-100.0) fL MCH 29.8 (25.0-35.0) pg MCHC 32.8 (31.0-37.0) g/dL RDW 12.3 (11.5-15.5) % Plt Count 299 (150-450) k/uL Neutrophils % 88 % Lymphocytes % 8 % Monocytes % 2 % Eosinophils % 1 % Basophils % 1 % Neutrophils # 6.2 (1.3-7.7) k/uL Lymphocytes # 0.5 L (1.0-4.8) k/uL Monocytes # 0.1 (0-1.0) k/uL Eosinophils # 0.1 (0-0.7) k/uL Basophils # 0.0 (0-0.2) k/uL PT (9.0-12.0) sec INR (<1.2) APTT (22.0-30.0) sec Sodium 138 (137-145) mmol/L Potassium 4.2 (3.5-5.1) mmol/L Chloride 104 (98-107) mmol/L Carbon Dioxide 25 (22-30) mmol/L Anion Gap 9 mmol/L BUN 13 (9-20) mg/dL Creatinine 0.56 L (0.66-1.25) mg/dL Est GFR (CKD-EPI)AfAm >90 (>60 ml/min/1.73 sqM) Est GFR (CKD-EPI)NonAf >90 (>60 ml/min/1.73 sqM) Glucose 149 H (74-99) mg/dL Calcium 9.5 (8.4-10.2) mg/dL Magnesium 2.0 (1.6-2.3) mg/dL Total Bilirubin 0.4 (0.2-1.3) mg/dL AST 26 (17-59) U/L ALT 21 (4-49) U/L Alkaline Phosphatase 71 (38-126) U/L Creatine Kinase 83 (55-170) U/L Troponin I (0.000-0.034) ng/mL NT-Pro-B Natriuret Pep 39 pg/mL Total Protein 6.9 (6.3-8.2) g/dL Albumin 4.2 (3.5-5.0) g/dL 07/24/19 07/24/19 Range/Units 19:15 19:15 WBC (3.8-10.6) k/uL RBC (4.30-5.90) m/uL Hgb (13.0-17.5) gm/dL Hct (39.0-53.0) % MCV (80.0-100.0) fL MCH (25.0-35.0) pg MCHC (31.0-37.0) g/dL RDW (11.5-15.5) % Plt Count (150-450) k/uL Neutrophils % % Lymphocytes % % Monocytes % % Eosinophils % % Basophils % % Neutrophils # (1.3-7.7) k/uL Lymphocytes # (1.0-4.8) k/uL Monocytes # (0-1.0) k/uL Eosinophils # (0-0.7) k/uL Basophils # (0-0.2) k/uL PT 9.6 (9.0-12.0) sec INR 0.9 (<1.2) APTT 23.2 (22.0-30.0) sec Sodium (137-145) mmol/L Potassium (3.5-5.1) mmol/L Chloride (98-107) mmol/L Carbon Dioxide (22-30) mmol/L Anion Gap mmol/L BUN (9-20) mg/dL Creatinine (0.66-1.25) mg/dL Est GFR (CKD-EPI)AfAm (>60 ml/min/1.73 sqM) Est GFR (CKD-EPI)NonAf (>60 ml/min/1.73 sqM) Glucose (74-99) mg/dL Calcium (8.4-10.2) mg/dL Magnesium (1.6-2.3) mg/dL Total Bilirubin (0.2-1.3) mg/dL AST (17-59) U/L ALT (4-49) U/L Alkaline Phosphatase (38-126) U/L Creatine Kinase (55-170) U/L Troponin I <0.012 (0.000-0.034) ng/mL NT-Pro-B Natriuret Pep pg/mL Total Protein (6.3-8.2) g/dL Albumin (3.5-5.0) g/dL - EKG Data -: EKG Interpreted by Me EKG shows normal: sinus rhythm EKG Comments: Sinus rhythm of 60. Interval 124 QRS 106 QT since QTC 410/410 feet - Radiology Data Radiology results: report reviewed (Imaging was reviewed no acute findings), image reviewed Disposition Clinical Impression: Acute exacerbation of chronic obstructive pulmonary disease Disposition: HOME SELF-CARE Condition: Good Instructions (If sedation given, give patient instructions): COPD (Chronic Obstructive Pulmonary Disease) (ED) Prescriptions: predniSONE 20 mg PO BID #10 tab Is patient prescribed a controlled substance at d/c from ED?: No Referrals: Domo Zarco MD [Primary Care Provider] - 1-2 days
[2019-07-24 19:31] LABS: Basophils % (A) 1 %; Eosinophils # (A) 0.1 k/uL (0-0.7); Eosinophils % (A) 1 %; HCT 46.2 % (39.0-53.0); HGB 15.2 gm/dL (13.0-17.5); Lymphocytes # (A) 0.5 k/uL (1.0-4.8); Lymphocytes % (A) 8 %; MCH 29.8 pg (25.0-35.0); MCHC 32.8 g/dL (31.0-37.0); Mean Platelet Volume 6.6; Monocytes # (A) 0.1 k/uL (0-1.0); Monocytes % (A) 2 %; Neutrophils # (A) 6.2 k/uL (1.3-7.7); Neutrophils % (A) 88 %; Platelet Count 299 k/uL (150-450); RBC 5.08 m/uL (4.30-5.90); RDW 12.3 % (11.5-15.5); WBC 7.1 k/uL (3.8-10.6)
[2019-07-24 19:43] LABS: INR 0.9 (<1.2); Partial Thromboplastin Time 23.2 sec (22.0-30.0); Prothrombin Time 9.6 sec (9.0-12.0)
[2019-07-24 19:46] LABS: ALT 21 U/L (4-49); AST 26 U/L (17-59); African American GFR (CKD) >90 (>60 ml/min/1.73 sqM); Albumin 4.2 g/dL (3.5-5.0); Alkaline Phosphatase 71 U/L (38-126); Anion Gap 9 mmol/L; Blood Urea Nitrogen 13 mg/dL (9-20); Calcium 9.5 mg/dL (8.4-10.2); Carbon Dioxide 25 mmol/L (22-30); Chloride 104 mmol/L (98-107); Creatine Kinase 83 U/L (55-170); Glucose 149 mg/dL (74-99); Non-African American GFR(CKD) >90 (>60 ml/min/1.73 sqM); Potassium 4.2 mmol/L (3.5-5.1); Sodium 138 mmol/L (137-145); Total Bilirubin 0.4 mg/dL (0.2-1.3); Total Protein 6.9 g/dL (6.3-8.2)
--- NOTE | 2019-07-24 20:03 | XR ---
EXAMINATION TYPE: XR chest 2V DATE OF EXAM: 07/24/2019 COMPARISON: 04/28/2019 HISTORY: Difficulty breathing TECHNIQUE: FINDINGS: Heart and mediastinum are normal. Lungs are clear. Costophrenic angles are clear. There are no hilar masses. There are bilateral nipple shadows. IMPRESSION: No active cardiopulmonary disease. No change. Normal heart.
[2019-07-24 20:27] VITALS: BP 131/80; PULSE 80; TEMP 97
== END 2019-07-24 20:39 | disposition home or self-care (01) ==
LOC: EC 18:49
DX: J44.1 Chronic obstructive pulmonary disease with (acute) exacerbation (principal); Z87.891 Personal history of nicotine dependence
CPT/HCPCS: 36415; 94640; 93005; 83880; 80053; 82550; 83735; 84484; 85025; 85610; 85730; 87040; 71046; 99285; 96374; 96361; J2930

== ENCOUNTER 2020-06-27 05:09 | Observation (INO) | payer OTHER ==
[2020-06-27] MEDS ORDERED: ALBUTEROL HFA INHALER INHALATION STA (05:31)
--- NOTE | 2020-06-27 06:16 | XR ---
EXAM: XR Chest, 2 Views CLINICAL HISTORY: difficulty breathing TECHNIQUE: Frontal and lateral views of the chest. COMPARISON: No relevant prior studies available. FINDINGS: Lungs: Small amount of airspace opacities over right lateral lower lung zones, more on the right. Pleural space: Unremarkable. No pneumothorax. Mediastinum: Unremarkable. Bones/joints: Unremarkable. IMPRESSION: Suspect small amount of bibasilar atelectasis and/or pneumonia
[2020-06-27 06:34] LABS: Basophils # (A) 0.1 k/uL (0-0.2); Basophils % (A) 1 %; Eosinophils # (A) 0.7 k/uL (0-0.7); Eosinophils % (A) 8 %; HCT 40.7 % (39.0-53.0); HGB 13.9 gm/dL (13.0-17.5); Lymphocytes # (A) 1.6 k/uL (1.0-4.8); Lymphocytes % (A) 19 %; MCH 30.8 pg (25.0-35.0); MCHC 34.2 g/dL (31.0-37.0); Mean Platelet Volume 6.5; Monocytes # (A) 0.4 k/uL (0-1.0); Monocytes % (A) 5 %; Neutrophils # (A) 5.2 k/uL (1.3-7.7); Neutrophils % (A) 65 %; Platelet Count 256 k/uL (150-450); RBC 4.52 m/uL (4.30-5.90); RDW 12.6 % (11.5-15.5)
[2020-06-27 06:46] LABS: ALT 30 U/L (4-49); AST 39 U/L (17-59); African American GFR (CKD) >90 (>60 ml/min/1.73 sqM); Albumin 3.5 g/dL (3.5-5.0); Alkaline Phosphatase 58 U/L (38-126); Anion Gap 4 mmol/L; Blood Urea Nitrogen 14 mg/dL (9-20); Calcium 8.6 mg/dL (8.4-10.2); Carbon Dioxide 28 mmol/L (22-30); Chloride 106 mmol/L (98-107); Glucose 104 mg/dL (74-99); Non-African American GFR(CKD) >90 (>60 ml/min/1.73 sqM); Potassium 3.6 mmol/L (3.5-5.1); Sodium 138 mmol/L (137-145); Total Bilirubin 0.4 mg/dL (0.2-1.3)
[2020-06-27 06:47] LABS: D-Dimer 0.21 mg/L FEU (<0.60); INR 0.9 (<1.2); Partial Thromboplastin Time 23.1 sec (22.0-30.0); Prothrombin Time 9.9 sec (9.0-12.0)
[2020-06-27] MEDS ORDERED: NITROGLYCERIN SL TABS 0.4 MG TAB SUBLINGUAL PRN (07:21)
--- NOTE | 2020-06-27 07:29 | ED ---
SOB HPI - General Chief Complaint: Shortness of Breath Stated Complaint: GENA Time Seen by Provider: 06/27/20 05:14 Source: EMS Mode of arrival: EMS - History of Present Illness Initial Comments: This patient is 60-year-old man who states that a history of COPD, who presents with complaint that he was extremely short of breath this morning. Patient states that the episode resolved after EMS got there and placed him on oxygen. The patient relates this to the fact that he is no longer receiving albuterol. He states that there was a change in his pharmacy coverage and albuterol is not covered and therefore he could not afford to obtain any longer. The patient did not note any chest pain, diaphoresis, nausea or vomiting. MD Complaint: shortness of breath -: minutes(s) Consistency: now resolved Improves With: bronchodilators Worsens With: nothing Known History Of: COPD Associated Symptoms: denies other symptoms Treatments Prior to Arrival: oxygen, bronchodilator - Related Data Home Oxygen Therapy: No Previous Rx's Medication Instructions Recorded Albuterol Inhaler [Ventolin Hfa 1 puff INHALATION RT-QID 30 Days 06/29/20 Inhaler] #1 puff Atorvastatin [Lipitor] 20 mg PO HS #30 tab 06/29/20 Budesonide-Formot 160-4.5 Mcg 2 puff INHALATION BID 30 Days #1 06/29/20 [Symbicort 160-4.5 Mcg Inhaler] inhaler Budesonide/Formoterol Fumarate 2 puff INHALATION BID 30 Days #1 06/29/20 [Symbicort 160-4.5 Mcg Inhaler] inhaler Doxycycline [Vibramycin] 100 mg PO BID 7 Days #14 capsule 06/29/20 Ipratropium-Albuterol Nebulize 3 ml INHALATION QID #5 box 06/29/20 [Duoneb 0.5 mg-3 mg/3 ml Soln] Losartan [Cozaar] 25 mg PO DAILY #30 tab 06/29/20 Metoprolol Tartrate [Lopressor] 25 mg PO BID #60 tablet 06/29/20 predniSONE 0 mg PO DIRECTED 15 Days #30 tab 06/29/20 Allergies Allergy/AdvReac Type Severity Reaction Status Date / Time No Known Allergies Allergy Verified 06/27/20 06:48 Review of Systems ROS Statement: Those systems with pertinent positive or pertinent negative responses have been documented in the HPI. ROS Other: All systems not noted in ROS Statement are negative. Constitutional: Denies: fever, chills Respiratory: Reports: dyspnea. Denies: cough, wheezes, hemoptysis Cardiovascular: Denies: chest pain, palpitations, orthopnea, edema, syncope Gastrointestinal: Denies: abdominal pain, nausea, vomiting, melena, hematochezia Genitourinary: Denies: dysuria, hematuria Musculoskeletal: Denies: back pain Skin: Denies: rash Neurological: Denies: headache, weakness, numbness Past Medical History Past Medical History: COPD, Pneumonia Additional Past Medical History / Comment(s): Chronic Bronchitis History of Any Multi-Drug Resistant Organisms: None Reported Past Surgical History: Appendectomy, Orthopedic Surgery Additional Past Surgical History / Comment(s): hand Past Psychological History: No Psychological Hx Reported Smoking Status: Never smoker Past Alcohol Use History: None Reported Past Drug Use History: Marijuana - Past Family History Father Family Medical History: No Reported History Mother Family Medical History: Cancer Additional Family Medical History / Comment(s): lung cancer Sister(s) Family Medical History: Asthma, COPD General Exam General appearance: alert, in no apparent distress Head exam: Present: atraumatic, normocephalic Eye exam: Present: normal appearance. Absent: scleral icterus, conjunctival injection ENT exam: Present: normal oropharynx Neck exam: Present: normal inspection Respiratory exam: Present: normal lung sounds bilaterally. Absent: respiratory distress, wheezes, rales, rhonchi, stridor Cardiovascular Exam: Present: regular rate, normal rhythm, normal heart sounds. Absent: systolic murmur, diastolic murmur, rubs, gallop GI/Abdominal exam: Present: soft. Absent: distended, tenderness, guarding, rebound, rigid, mass Extremities exam: Present: normal inspection, normal capillary refill. Absent: pedal edema, calf tenderness Back exam: Present: normal inspection. Absent: CVA tenderness (R), CVA tenderness (L) Neurological exam: Present: alert Skin exam: Present: warm, dry, intact, normal color. Absent: rash Course Vital Signs 06/27/20 06/27/20 05:10 07:18 Temperature 97.9 F Pulse Rate 71 60 Respiratory 20 16 Rate Blood Pressure 116/88 101/75 O2 Sat by Pulse 96 98 Oximetry Medical Decision Making - Medical Decision Making Patient's 60-year-old man presenting with an episode of dyspnea that has resolved by the time he is seen here. The patient does have a minimally el evated troponin, concerning for episode of unstable angina. He has been asymptomatic throughout the course here. - Lab Data Result diagrams: 06/27/20 05:38 06/27/20 05:38 Lab Results 06/27/20 06/27/20 06/27/20 Range/Units 05:38 05:38 05:38 WBC 8.0 (3.8-10.6) k/uL RBC 4.52 (4.30-5.90) m/uL Hgb 13.9 (13.0-17.5) gm/dL Hct 40.7 (39.0-53.0) % MCV 90.0 (80.0-100.0) fL MCH 30.8 (25.0-35.0) pg MCHC 34.2 (31.0-37.0) g/dL RDW 12.6 (11.5-15.5) % Plt Count 256 (150-450) k/uL MPV 6.5 Neutrophils % 65 % Lymphocytes % 19 % Monocytes % 5 % Eosinophils % 8 % Basophils % 1 % Neutrophils # 5.2 (1.3-7.7) k/uL Lymphocytes # 1.6 (1.0-4.8) k/uL Monocytes # 0.4 (0-1.0) k/uL Eosinophils # 0.7 (0-0.7) k/uL Basophils # 0.1 (0-0.2) k/uL PT 9.9 (9.0-12.0) sec INR 0.9 (<1.2) APTT 23.1 (22.0-30.0) sec D-Dimer 0.21 (<0.60) mg/L FEU Sodium 138 (137-145) mmol/L Potassium 3.6 (3.5-5.1) mmol/L Chloride 106 (98-107) mmol/L Carbon Dioxide 28 (22-30) mmol/L Anion Gap 4 mmol/L BUN 14 (9-20) mg/dL Creatinine 0.64 L (0.66-1.25) mg/dL Est GFR (CKD-EPI)AfAm >90 (>60 ml/min/1.73 sqM) Est GFR (CKD-EPI)NonAf >90 (>60 ml/min/1.73 sqM) Glucose 104 H (74-99) mg/dL Calcium 8.6 (8.4-10.2) mg/dL Total Bilirubin 0.4 (0.2-1.3) mg/dL AST 39 (17-59) U/L ALT 30 (4-49) U/L Alkaline Phosphatase 58 (38-126) U/L Troponin I (0.000-0.034) ng/mL Total Protein 6.0 L (6.3-8.2) g/dL Albumin 3.5 (3.5-5.0) g/dL Coronavirus (PCR) (Not Detected) 06/27/20 06/27/20 Range/Units 05:38 05:50 WBC (3.8-10.6) k/uL RBC (4.30-5.90) m/uL Hgb (13.0-17.5) gm/dL Hct (39.0-53.0) % MCV (80.0-100.0) fL MCH (25.0-35.0) pg MCHC (31.0-37.0) g/dL RDW (11.5-15.5) % Plt Count (150-450) k/uL MPV Neutrophils % % Lymphocytes % % Monocytes % % Eosinophils % % Basophils % % Neutrophils # (1.3-7.7) k/uL Lymphocytes # (1.0-4.8) k/uL Monocytes # (0-1.0) k/uL Eosinophils # (0-0.7) k/uL Basophils # (0-0.2) k/uL PT (9.0-12.0) sec INR (<1.2) APTT (22.0-30.0) sec D-Dimer (<0.60) mg/L FEU Sodium (137-145) mmol/L Potassium (3.5-5.1) mmol/L Chloride (98-107) mmol/L Carbon Dioxide (22-30) mmol/L Anion Gap mmol/L BUN (9-20) mg/dL Creatinine (0.66-1.25) mg/dL Est GFR (CKD-EPI)AfAm (>60 ml/min/1.73 sqM) Est GFR (CKD-EPI)NonAf (>60 ml/min/1.73 sqM) Glucose (74-99) mg/dL Calcium (8.4-10.2) mg/dL Total Bilirubin (0.2-1.3) mg/dL AST (17-59) U/L ALT (4-49) U/L Alkaline Phosphatase (38-126) U/L Troponin I 0.117 H* (0.000-0.034) ng/mL Total Protein (6.3-8.2) g/dL Albumin (3.5-5.0) g/dL Coronavirus (PCR) Not Detected (Not Detected) Critical Care Time Critical Care Time: Yes (30 minutes) Disposition Clinical Impression: Acute coronary syndrome Disposition: ADMITTED IP TO THIS HOSP Condition: Stable Is patient prescribed a controlled substance at d/c from ED?: No
[2020-06-27] MEDS ORDERED: IPRATROPIUM-ALBUTEROL 3 ML NEB INHALATION PRN (11:26)
[2020-06-27] MEDS: predniSONE 20 MG TAB PO SCH (12:08)
[2020-06-27] MEDS: DOXYCYCLINE 100 MG CAP PO SCH ×2 (12:09→20:09)
[2020-06-27 12:17] LABS: Cholesterol 149 mg/dL (<200); HDL Cholesterol 58 mg/dL (40-60); LDL Cholesterol,Calculated 75 mg/dL (0-99); Triglycerides 80 mg/dL (<150)
[2020-06-27 12:51] VITALS: BMI 23.6
--- NOTE | 2020-06-27 13:25 | P.CNPUL ---
History of Present Illness Consult date: 06/27/20 Reason for consult: dyspnea Chief complaint: Severe dyspnea, respiratory distress History of present illness: 60-year-old white male patient with a known history of COPD with baseline FEV1 of 2 liters of 59% of predicted, most recently his FEV1 dropped down to 36% as of 01/05/2020, patient is not oxygen dependent at baseline. Patient sees Dr. Rosa in the office, is a former smoker, he quit smoking a few years ago, he is on Ventolin, and DuoNeb nebulized treatments, however about a month ago his insurance stopped covering his inhaler in breathing medications. He has been progressively short of breath, on 06/27/2020 patient came in to the emergency department per EMS with complaints of severe shortness of breath, she was placed on supplemental oxygen per EMS which improved his breathing, he states he thinks it's related to the fact that he is no longer receiving albuterol. Patient can no longer afford his medication. He denied any chest pain, denied any fever, chills, no nausea vomiting. He has occasional cough, production of yellowish colored sputum. Chest x-ray showed small amount of bibasilar atelectasis. His vital signs have been stable, he has been afebrile, initially required supplemental oxygen, but his pulse ox was 96% on 2 L, room air pulse ox is 92%. He states his breathing significantly improved since his admission, able to speak in full sentences, he was given breathing treatments in the emergency department. His breathing much more comfortably right now, his lab work was re viewed showing CBC within normal limits, electrolytes and renal profile were unremarkable, d-dimer was negative at 0.21, he did have a troponin elevation of 0.117, 0.409, and 0.552. His EKG showed normal sinus rhythm with evidence of a septal infarct of undetermined age. Cardiology consultation has been requested. We were asked to see the patient in consultation for what seems to be an acute exacerbation of COPD. COVID PCR was sent and is pending at this time. Review of Systems All systems: negative Constitutional: Denies chills, Denies fever Eyes: denies blurred vision, denies pain Ears, nose, mouth and throat: Denies headache, Denies sore throat Cardiovascular: Denies chest pain, Denies shortness of breath Respiratory: Reports dyspnea, Denies cough Gastrointestinal: Denies abdominal pain, Denies diarrhea, Denies nausea, Denies vomiting Musculoskeletal: Denies myalgias Integumentary: Denies pruritus, Denies rash Neurological: Denies numbness, Denies weakness Psychiatric: Denies anxiety, Denies depression Endocrine: Denies fatigue, Denies weight change Past Medical History Past Medical History: COPD, Pneumonia Additional Past Medical History / Comment(s): Chronic Bronchitis History of Any Multi-Drug Resistant Organisms: None Reported Past Surgical History: Appendectomy, Orthopedic Surgery Additional Past Surgical History / Comment(s): right hand Past Anesthesia/Blood Transfusion Reactions: No Reported Reaction Past Psychological History: No Psychological Hx Reported Additional Psychological History / Comment(s): None per patient. Smoking Status: Former smoker Past Alcohol Use History: None Reported Past Drug Use History: Marijuana Additional Drug Use History / Comment(s): occasional marijuana use, last use 1 week ago - Past Family History Father Family Medical History: No Reported History Mother Family Medical History: Cancer Additional Family Medical History / Comment(s): lung cancer Sister(s) Family Medical History: Asthma, COPD Medications and Allergies Home Medications Medication Instructions Recorded Confirmed Type No Known Home Medications 06/27/20 06/27/20 History Allergies Allergy/AdvReac Type Severity Reaction Status Date / Time No Known Allergies Allergy Verified 06/27/20 06:48 Physical Exam Vitals: Vital Signs Temp Pulse Pulse Resp BP BP Pulse Ox 06/27/20 12:00 60 18 103/65 96 06/27/20 10:14 97.5 F L 63 18 92/63 06/27/20 10:07 97.5 F L 63 18 92/63 92 L 06/27/20 07:18 60 16 101/75 98 06/27/20 05:10 97.9 F 71 20 116/88 96 Intake and Output 06/26/20 06/27/20 06/27/20 22:59 06:59 14:59 Other: Voiding Method Urinal Weight 72.575 kg 72.575 kg GENERAL EXAM: Alert, very pleasant, 60-year-old white male, on room air, with a pulse ox of 92%, sedimentation pain, appears to be in no acute distress, speaking in full sentences, comfortable in no apparent distress. HEAD: Normocephalic/atraumatic. EYES: Normal reaction of pupils, equal size. Conjunctiva pink, sclera white. NOSE: Clear with pink turbinates. THROAT: No erythema or exudates. NECK: No masses, no JVD, no thyroid enlargement, no adenopathy. CHEST: No chest wall deformity. Symmetrical expansion. LUNGS: Equal air entry with diminished breath sounds, patient has occasional cough, nonproductive, wheezing or rhonchi noted CVS: Regular rate and rhythm, normal S1 and S2, no gallops, no murmurs, no rubs ABDOMEN: Soft, nontender. No hepatosplenomegaly, normal bowel sounds, no guarding or rigidity. EXTREMITIES: No clubbing, no edema, no cyanosis, 2+ pulses and upper and lower extremities. MUSCULOSKELETAL: Muscle strength and tone normal. SPINE: No scoliosis or deformity SKIN: No rashes CENTRAL NERVOUS SYSTEM: Alert and oriented -3. No focal deficits, tone is nor mal in all 4 extremities. PSYCHIATRIC: Alert and oriented -3. Appropriate affect. Intact judgment and insight. Results - Laboratory Findings CBC and BMP: 06/27/20 05:38 06/27/20 05:38 PT/INR, D-dimer PT 9.9 sec (9.0-12.0) 06/27/20 05:38 INR 0.9 (<1.2) 06/27/20 05:38 D-Dimer 0.21 mg/L FEU (<0.60) 06/27/20 05:38 Abnormal lab findings: Abnormal Labs 06/27/20 06/27/20 06/27/20 05:38 05:38 08:30 Creatinine 0.64 L Glucose 104 H Troponin I 0.117 H* 0.409 H* Total Protein 6.0 L 06/27/20 11:12 Creatinine Glucose Troponin I 0.552 H* Total Protein - Diagnostic Findings Chest x-ray: report reviewed, image reviewed Assessment and Plan Plan: Assessment: #1. Acute exacerbation of chronic obstructive pulmonary disease #2. Troponin elevation, with no acute ST or T-wave changes on the EKG, no complaints of chest pain, cardiology is following #3. Advanced COPD, latest PFT in December 2019 showing FEV1 of 36% of predicted, consistent with stage III COPD, not oxygen dependent at baseline #4. Former smoker, in remission for the past 2 years, carries at least [id number] smoking history #5. GERD without esophagitis #6. History of multiple nonspecific pulmonary nodules being followed by Dr. Rosa in the pulmonary clinic Plan: Consulted social work for assistance with prescription medications including inhalers and breathing treatments, patient needs to be on Symbicort 1604.5 mics inhaler twice daily, in addition to DuoNeb 4 times daily, he was to have a Ventolin rescue inhaler, we'll start patient on prednisone 40 mg daily, oral antibiotics in the form of doxycycline, he is awaiting to be evaluated by cardiology in regards to elevated troponins, otherwise from pulmonary perspective he is stable for discharge home on the prednisone taper, oral antibiotics, and breathing treatments and inhalers. Need outpatient follow-up with Dr. Rosa in the office in one week I performed a history & physical examination of the patient and discussed their management with my nurse practitioner, Siobhan Razo. I reviewed the nurse practitioner's note and agree with the documented findings and plan of care. Lung sounds are positive for diminished breath sounds. The findings and the impression was discussed with the patient. I attest to the documentation by the nurse practitioner. Time with Patient: Greater than 30
[2020-06-27] MEDS: METOPROLOL TARTRATE 12.5 MG TAB PO SCH ×2 (14:50→20:10)
[2020-06-27] MEDS: IPRATROPIUM-ALBUTEROL 3 ML NEB INHALATION SCH ×3 (16:22→20:15)
--- NOTE | 2020-06-27 16:39 | P.CRDCN ---
History of Present Illness Consult date: 06/27/20 History of present illness: CHIEF COMPLAINT: Unstable angina HISTORY OF PRESENT ILLNESS: This is a 60-year-old male with a past medical history significant for COPD, pneumonia, and former nicotine dependence. 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 We have been asked to see the patient in consultation for an normal troponins. Patient states started having severe shortness of breath yesterday and felt like he was gasping for air. Patient states he could feel his heart beating and felt that it was working hard. He denies feeling his heart racing however. He reports he has not been taking his albuterol due to insurance issues. He states a family member went to a neighbor's house and got a Symbicort inhaler for him to use and then he came to the hospital for further evaluation. The patient denies any chest pain or pressure. He states his shortness of breath has since improved. He denies any dizziness or lightheadedness. Denies nausea or vomiting. DIAGNOSTICS: EKG reveals sinus mechanism with a heart rate of 65 Chest xray suspect small amount of bibasilar atelectasis and/or pneumonia Laboratory data: WBC 8.0. Hemoglobin 13.9. Platelet count 256. D-dimer 0.21. Sodium 138. Potassium 3.6. BUN 14. Creatinine 0.64. Troponin 0.117. 0.409. 0.552. Current home cardiac medications include none REVIEW OF SYSTEMS: At the time of my exam: CONSTITUTIONAL: Denies fever or chills. HEENT: Denies blurred vision, vision changes, or eye pain. Denies hemoptysis CARDIOVASCULAR: Denies chest pain, orthopnea, PND or palpitations RESPIRATORY: Reports shortness of breath. GASTROINTESTINAL: Denies abdominal pain. Denies nausea or vomiting. HEMATOLOGIC: Denies bleeding disorders. GENITOURINARY: Denies any blood in urine. SKIN: Denies pruitis. Denies rash. PHYSICAL EXAM: VITAL SIGNS: Reviewed. GENERAL: Well-developed in no acute distress. HEENT: Head is normocephalic. Pupils are equal, round. Sclerae anicteric. Mucous membranes of the mouth are moist. Neck supple. No JVD or thyromegaly LUNGS: Respirations even and unlabored. Lungs diminished with expiratory wheezing noted HEART: Regular rate and rhythm. S1 and S2 heard. ABDOMEN: Soft. Nondistended. Nontender. EXTREMITIES: Normal range of motion. No clubbing or cyanosis. Peripheral pulses intact. No lower extremity edema NEUROLOGIC: Awake and alert. Oriented x 3. ASSESSMENT: Shortness of breath Acute exacerbation of COPD Elevated troponins, suspect type II NM oxygen supply and demand mismatch secondary to hypoxia Former nicotine dependence PLAN: Pulmonary following for COPD. Await input and recommendations. Decrease aspirin to 81 mg daily Obtain 2-D echo to assess cardiac structure and function Further recommendations pending patient course Nurse practitioner note has been reviewed by physician. Signing provider agrees with the documented findings, assessment, and plan of care. Past Medical History Past Medical History: COPD, Pneumonia Additional Past Medical History / Comment(s): Chronic Bronchitis History of Any Multi-Drug Resistant Organisms: None Reported Past Surgical History: Appendectomy, Orthopedic Surgery Additional Past Surgical History / Comment(s): right hand Past Anesthesia/Blood Transfusion Reactions: No Reported Reaction Past Psychological History: No Psychological Hx Reported Additional Psychological History / Comment(s): None per patient. Smoking Status: Former smoker Past Alcohol Use History: None Reported Past Drug Use History: Marijuana Additional Drug Use History / Comment(s): occasional marijuana use, last use 1 week ago - Past Family History Father Family Medical History: No Reported History Mother Family Medical History: Cancer Additional Family Medical History / Comment(s): lung cancer Sister(s) Family Medical History: Asthma, COPD Medications and Allergies Home Medications Medication Instructions Recorded Confirmed Type No Known Home Medications 06/27/20 06/27/20 History Allergies Allergy/AdvReac Type Severity Reaction Status Date / Time No Known Allergies Allergy Verified 06/27/20 06:48 Physical Exam Vitals: Vital Signs Temp Pulse Pulse Resp BP BP Pulse Ox 06/27/20 16:26 62 06/27/20 12:00 60 18 103/65 96 06/27/20 10:14 97.5 F L 63 18 92/63 06/27/20 10:07 97.5 F L 63 18 92/63 92 L 06/27/20 07:18 60 16 101/75 98 06/27/20 05:10 97.9 F 71 20 116/88 96 Intake and Output 06/27/20 06/27/20 06/27/20 06:59 14:59 22:59 Intake Total 240 Balance 240 Intake: Oral 240 Other: Voiding Method Urinal Weight 72.575 kg 72.575 kg Results 06/27/20 05:38 06/27/20 05:38 Cardiac Enzymes 06/27/20 06/27/20 06/27/20 Range/Units 05:38 05:38 08:30 AST 39 (17-59) U/L Troponin I 0.117 H* 0.409 H* (0.000-0.034) ng/mL 06/27/20 Range/Units 11:12 AST (17-59) U/L Troponin I 0.552 H* (0.000-0.034) ng/mL Coagulation 06/27/20 Range/Units 05:38 PT 9.9 (9.0-12.0) sec APTT 23.1 (22.0-30.0) sec Lipids 06/27/20 Range/Units 08:30 Triglycerides 80 (<150) mg/dL Cholesterol 149 (<200) mg/dL HDL Cholesterol 58 (40-60) mg/dL CBC 06/27/20 Range/Units 05:38 WBC 8.0 (3.8-10.6) k/uL RBC 4.52 (4.30-5.90) m/uL Hgb 13.9 (13.0-17.5) gm/dL Hct 40.7 (39.0-53.0) % Plt Count 256 (150-450) k/uL Comprehensive Metabolic Panel 06/27/20 Range/Units 05:38 Sodium 138 (137-145) mmol/L Potassium 3.6 (3.5-5.1) mmol/L Chloride 106 (98-107) mmol/L Carbon Dioxide 28 (22-30) mmol/L BUN 14 (9-20) mg/dL Creatinine 0.64 L (0.66-1.25) mg/dL Glucose 104 H (74-99) mg/dL Calcium 8.6 (8.4-10.2) mg/dL AST 39 (17-59) U/L ALT 30 (4-49) U/L Alkaline Phosphatase 58 (38-126) U/L Total Protein 6.0 L (6.3-8.2) g/dL Albumin 3.5 (3.5-5.0) g/dL Current Medications Generic Name Dose Route Start Last Admin Trade Name Freq PRN Reason Stop Dose Admin Albuterol/Ipratropium 3 ml 06/27/20 12:00 06/27/20 16:23 Ipratropium-Albuterol 3 Ml Neb INHALATION 3 ml RT-QID SUNNY Administration Albuterol/Ipratropium 3 ml 06/27/20 11:26 Ipratropium-Albuterol 3 Ml Neb INHALATION RT-Q2H PRN Shortness Of Breath Or Wheezing Aspirin 81 mg 06/28/20 09:00 Aspirin 81 Mg PO DAILY [facility] Atorvastatin Calcium 20 mg 06/27/20 21:00 Atorvastatin 20 Mg Tab PO HS [facility] Budesonide/Formoterol Fumarate 2 puff 06/27/20 20:00 Symbicort 160-4.5 Mcg Inhaler INHALATION RT-BID [facility] Doxycycline Monohydrate 100 mg 06/27/20 12:00 06/27/20 12:09 Doxycycline 100 Mg Cap PO 100 mg BID SUNNY Administration Metoprolol Tartrate 12.5 mg 06/27/20 12:45 06/27/20 14:50 Metoprolol Tartrate 12.5 Mg Tab PO 12.5 mg BID SUNNY Administration Nitroglycerin 0.4 mg 06/27/20 07:21 Nitroglycerin Sl Tabs 0.4 Mg Tab SUBLINGUAL Q5M PRN Chest Pain Prednisone 40 mg 06/27/20 11:30 06/27/20 12:08 Prednisone 20 Mg Tab PO 40 mg DAILY SUNNY Administration Intake and Output 06/27/20 06/27/20 06/27/20 06:59 14:59 22:59 Intake Total 240 Balance 240 Intake: Oral 240 Other: Voiding Method Urinal Weight 72.575 kg 72.575 kg Patient Weight 06/28/20 06:59 Weight 72.575 kg 06/27/20 05:38 06/27/20 05:38
[2020-06-27] MEDS: ATORVASTATIN 20 MG TAB PO SCH (20:10)
[2020-06-27] MEDS: SYMBICORT 160-4.5 MCG INHALER INHALATION SCH (20:15)
--- NOTE | 2020-06-27 20:57 | P.HPIM ---
History of Present Illness H&P Date: 06/27/20 Chief Complaint: Shortness of breath History of presenting complaint: This is a 60-year-old patient of . Patient has known history of COPD. Because of no insurance patient ran out of his inhalers. He has been using his sister's bronchodilators and Symbicort. Symptoms have progressively been getting worse. One more short of breath and wheezing. Yesterday became far more so. He also noticed significant amount of perspiration. Decided to come in. Received bronchitis feeling better with the same. Some chest tightness. Some dizziness. No fever no chills. Review of systems: GEN.: Tired EYES: None HEENT: None NECK: None RESPIRATORY: As above CARDIOVASCULAR: As above GASTROINTESTINAL: None GENITOURINARY: None MUSCULOSKELETAL: None LYMPHATICS: None HEMATOLOGICAL: None PSYCHIATRY: None NEUROLOGICAL: None Past medical history to include: COPD Social history: Lives with his daughter and and her family. 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 Physical examination: VITAL SIGNS: 97.9, 71, 20, 116/88, 96% on 2 L GENERAL: BMI 23.6, reclining in bed, short of breath. EYES: Pupils equal. Conjunctiva normal. HEENT: External appearance of nose and ears normal, oral cavity grossly normal. NECK: JVD not raised; masses not palpable. HEART: First and second heart sounds are normal; no edema. LUNGS: Respiratory rate increased, diminished breath sounds prolonged expiration and wheezing. ABDOMEN: Soft, nontender, liver spleen not palpable, no masses palpable. PSYCH: Alert and oriented x3; mood and affect normal. NEUROLOGICAL: Cranial nerves grossly intact; no facial asymmetry, power and sensation grossly intact. LYMPHATICS: No lymph nodes palpable in the axilla and neck Investigations: White count 8 hemoglobin 13.9 platelets 256 potassium 3.6 d-dimer 0.21 Potassium 3.6 bun 14 creatinine 0.64 Troponin I 0.117, 0.409 LDL 75 Coronavirus P/Cr-not detected EKG tracing personally reviewed by me-normal sinus rhythm with poor R-wave progression Chest x-ray film personally reviewed by me-hyperinflation, prominent pulmonary artery Assessment: -Probable acute non-Q wave UT. Patient is factors include his age, history of smoking. Patient is poor R-wave progression anteriorly leads. In rise in his troponins. -Acute COPD exacerbation in an ex-smoker Plan: Patient be put on baby aspirin, small dose of beta makayla and Lipitor. Also put on bronchodilators steroids and doxycycline. Cardiology was consulted. 2-D echocardiogram. Care was discussed with the patient. Currently no chest pain. Hold off any IV heparin. regional sales manager consulted. Past Medical History Past Medical History: COPD, Pneumonia Additional Past Medical History / Comment(s): Chronic Bronchitis History of Any Multi-Drug Resistant Organisms: None Reported Past Surgical History: Appendectomy, Orthopedic Surgery Additional Past Surgical History / Comment(s): right hand Past Anesthesia/Blood Transfusion Reactions: No Reported Reaction Past Psychological History: No Psychological Hx Reported Additional Psychological History / Comment(s): None per patient. Smoking Status: Former smoker Past Alcohol Use History: None Reported Past Drug Use History: Marijuana Additional Drug Use History / Comment(s): occasional marijuana use, last use 1 week ago - Past Family History Father Family Medical History: No Reported History Mother Family Medical History: Cancer Additional Family Medical History / Comment(s): lung cancer Sister(s) Family Medical History: Asthma, COPD Medications and Allergies Home Medications Medication Instructions Recorded Confirmed Type No Known Home Medications 06/27/20 06/27/20 History Allergies Allergy/AdvReac Type Severity Reaction Status Date / Time No Known Allergies Allergy Verified 06/27/20 06:48 Physical Exam Vitals: Vital Signs Temp Pulse Pulse Resp BP BP Pulse Ox 06/27/20 10:14 97.5 F L 63 18 92/63 06/27/20 10:07 97.5 F L 63 18 92/63 92 L 06/27/20 07:18 60 16 101/75 98 06/27/20 05:10 97.9 F 71 20 116/88 96 Intake and Output 06/26/20 06/27/20 06/27/20 22:59 06:59 14:59 Other: Voiding Method Urinal Weight 72.575 kg 72.575 kg Results CBC & Chem 7: 06/27/20 05:38 06/27/20 05:38 Labs: Abnormal Lab Results - Last 24 Hours (Table) 06/27/20 06/27/20 06/27/20 Range/Units 05:38 05:38 08:30 Creatinine 0.64 L (0.66-1.25) mg/dL Glucose 104 H (74-99) mg/dL Troponin I 0.117 H* 0.409 H* (0.000-0.034) ng/mL Total Protein 6.0 L (6.3-8.2) g/dL Thrombosis Risk Factor Assmnt - Choose All That Apply Any of the Below Risk Factors Present?: Yes Each Factor Represents 1 point: Age 41-60 years Thrombosis Risk Factor Assessment Total Risk Factor Score: 1 Thrombosis Risk Factor Assessment Level: Low Risk
[2020-06-27 22:23] LABS: Hemoglobin A1C 5.7 % (4.0-6.0)
[2020-06-28] MEDS: IPRATROPIUM-ALBUTEROL 3 ML NEB INHALATION SCH ×4 (06:56→19:33)
[2020-06-28] MEDS: SYMBICORT 160-4.5 MCG INHALER INHALATION SCH ×2 (07:03→19:33)
--- NOTE | 2020-06-28 08:01 | ECHOF ---
Referral Reason:CP MEASUREMENTS -------- HEIGHT: 175.3 cm WEIGHT: 72.6 kg BP: IVSd: 1.0 cm (0.6 - 1.1) LVIDd: 5.1 cm (3.9 - 5.3) LVPWd: 1.2 cm (0.6 - 1.1) IVSs: 1.0 cm LVIDs: 4.5 cm LVPWs: 1.3 cm IVSd: 1.0 cm (0.6 - 1.1) Ao Diam: 3.1 cm (2.0 - 3.7) AV Cusp: 1.5 cm (1.5 - 2.6) LA Diam: 1.7 cm (2.7 - 3.8) MV EXCURSION: 20.130 mm (> 18.000) MV EF SLOPE: 100 mm/s (70 - 150) EPSS: 1.4 cm MV E Chago: 0.58 m/s MV DecT: 232 ms MV A Chago: 0.77 m/s MV E/A Ratio: 0.76 RAP: 5.00 mmHg RVSP: 14.20 mmHg FINDINGS -------- This was a technically difficult study with suboptimal views. The left ventricular size is normal. Left ventricular wall thickness is normal. Overall left vent ricular systolic function is moderate-severely impaired with, an EF between 30 - 35 %. The RV was not well visualized. The left atrial size is normal. The right atrium was not well visualized. The aortic valve was not well visualized. The mitral valve is normal. There is trace mitral regurgitation. The tricuspid valve appears structurally normal. Trace tricuspid regurgitation present. Right slava tricular systolic pressure is normal at < 35 mmHg. There is no pulmonic regurgitation present. The aortic root size is normal. IVC Not well visulized. There is no pericardial effusion. CONCLUSIONS -------- 1. The left ventricular size is normal. 2. Left ventricular wall thickness is normal. 3. Overall left ventricular systolic function is moderate-severely impaired with, an EF between 30 - 35 %. 4. There is trace mitral regurgitation. 5. Trace tricuspid regurgitation present. 6. There is no pericardial effusion. WAGE AND SALARY SPECIALIST: Dary Elizabeth RDCS
[2020-06-28] MEDS: ASPIRIN 81 MG PO SCH (08:36)
[2020-06-28] MEDS: predniSONE 20 MG TAB PO SCH (08:37)
[2020-06-28] MEDS: METOPROLOL TARTRATE 12.5 MG TAB PO SCH ×2 (08:37→20:06)
[2020-06-28] MEDS: DOXYCYCLINE 100 MG CAP PO SCH ×2 (08:37→20:06)
[2020-06-28] MEDS ORDERED: ASPIRIN 325 MG TAB PO SCH (09:00)
[2020-06-28] MEDS ORDERED: NITROGLYCERIN SL TABS 0.4 MG TAB SUBLINGUAL PRN (11:46)
[2020-06-28] MEDS ORDERED: ALPRAZolam 0.5 MG TAB PO PRN (11:46)
[2020-06-28] MEDS ORDERED: ALPRAZolam 0.25 MG TAB PO PRN (11:46)
--- NOTE | 2020-06-28 14:40 | P.PN ---
Subjective Progress Note Date: 06/28/20 CHIEF COMPLAINT: Unstable angina HISTORY OF PRESENT ILLNESS: Patient examined this morning at the bedside. Patient states he was short of breath this morning and felt like he was wheezing and had some chest tightness. He received a breathing treatment which he said helped his symptoms. At the time of examination he denies chest pain or pressure. Echocardiogram completed revealed ejection fraction 3035%, trace mitral regurgitation, and trace tricuspid regurgitation. PHYSICAL EXAM: VITAL SIGNS: Reviewed. GENERAL: Well-developed in no acute distress. HEENT: Head is normocephalic. Pupils are equal, round. Sclerae anicteric. Mucous membranes of the mouth are moist. Neck supple. No JVD or thyromegaly LUNGS: Respirations even and unlabored. Lungs diminished. HEART: Regular rate and rhythm. S1 and S2 heard. ABDOMEN: Soft. Nondistended. Nontender. EXTREMITIES: Normal range of motion. No clubbing or cyanosis. Peripheral pulses intact. No lower extremity edema NEUROLOGIC: Awake and alert. Oriented x 3. ASSESSMENT: Shortness of breath Acute exacerbation of COPD Elevated troponins, suspect type II LA oxygen supply and demand mismatch secondary to hypoxia, cannot rule out coronary artery disease Cardiomyopathy, unclear if ischemic or nonischemic Former nicotine dependence PLAN: Continue current cardiac medications Dr. Quintanilla recommends cardiac cath. He spoke with the patient who is agreeable. Patient will undergo cardiac cath tomorrow with Dr. Ulrich at 730. Further recommendations pending patient course Nurse practitioner note has been reviewed by physician. Signing provider agrees with the documented findings, assessment, and plan of care. Objective - Vital Signs Vital signs: Vital Signs Temp 98 F 06/28/20 08:35 Pulse 58 L 06/28/20 11:05 Resp 18 06/28/20 11:05 BP 120/65 06/28/20 11:05 Pulse Ox 93 L 06/28/20 11:05 Intake & Output 06/27/20 06/28/20 06/28/20 18:59 06:59 18:59 Intake Total 360 480 Balance 360 480 Weight 72.575 kg 72.9 kg Intake: Oral 360 480 Other: Voiding Method Urinal Urinal # Voids 2 2 1 - Labs CBC & Chem 7: 06/27/20 05:38 06/27/20 05:38
--- NOTE | 2020-06-28 14:51 | P.PN ---
Subjective Progress Note Date: 06/28/20 Principal diagnosis: Severe dyspnea, respiratory distress 60-year-old white male patient with a known history of COPD with baseline FEV1 of 59% of predicted, most recently his FEV1 dropped down to 36% as of 01/05/2020, patient is not oxygen dependent at baseline. Patient sees Dr. Rosa in the office, is a former smoker, he quit smoking a few years ago, he is on Ventolin, and DuoNeb nebulized treatments, however about a month ago his insurance stopped covering his inhaler in breathing medications. He has been progressively short of breath, on 06/27/2020 patient came in to the emergency department per EMS with complaints of severe shortness of breath, she was placed on supplemental oxygen per EMS which improved his breathing, he states he thinks it's related to the fact that he is no longer receiving albuterol. Patient can no longer afford his medication. He denied any chest pain, denied any fever, chills, no nausea vomiting. He has occasional cough, production of yellowish colored sputum. Chest x-ray showed small amount of bibasilar atelectasis. His vital signs have been stable, he has been afebrile, initially required supplemental oxygen, but his pulse ox was 96% on 2 L, room air pulse ox is 92%. He states his breathing significantly improved since his admission, able to speak in full sentences, he was given breathing treatments in the emergency de partment. His breathing much more comfortably right now, his lab work was reviewed showing CBC within normal limits, electrolytes and renal profile were unremarkable, d-dimer was negative at 0.21, he did have a troponin elevation of 0.117, 0.409, and 0.552. His EKG showed normal sinus rhythm with evidence of a septal infarct of undetermined age. Cardiology consultation has been requested. We were asked to see the patient in consultation for what seems to be an acute exacerbation of COPD. COVID PCR was sent and is pending at this time. On 06/28/2020 patient seen in follow-up on selective care unit, she is resting comfortably in bed, appears to be note acute distress, room air pulse ox is 93%, no fever or chills, and hemodynamically has been stable, no complaints of chest discomfort, patient does get short of breath with exertion, lung sounds do not reveal any wheezing or crackles or rhonchi, no significant cough or congestion, no hemoptysis, his COVID 19 PCR was found to be negative. Patient had elevated troponins that peaked at 0.552, he is being seen by cardiology, he is ec hocardiogram revealed moderately to severely impaired systolic function with an EF of 30-35%. The plan is to proceed with the cardiac catheterization tomorrow. Objective - Vital Signs Vital signs: Vital Signs Temp 98 F 06/28/20 08:35 Pulse 58 L 06/28/20 11:05 Resp 18 06/28/20 11:05 BP 120/65 06/28/20 11:05 Pulse Ox 93 L 06/28/20 11:05 Intake & Output 06/27/20 06/28/20 06/28/20 18:59 06:59 18:59 Intake Total 360 480 Balance 360 480 Weight 72.575 kg 72.9 kg Intake: Oral 360 480 Other: Voiding Method Urinal Urinal # Voids 2 2 1 - Exam GENERAL EXAM: Alert, very pleasant, 60-year-old white male, on room air, with a pulse ox of 93%, sedimentation pain, appears to be in no acute distress, speaking in full sentences, comfortable in no apparent distress. HEAD: Normocephalic/atraumatic. EYES: Normal reaction of pupils, equal size. Conjunctiva pink, sclera white. NOSE: Clear with pink turbinates. THROAT: No erythema or exudates. NECK: No masses, no JVD, no thyroid enlargement, no adenopathy. CHEST: No chest wall deformity. Symmetrical expansion. LUNGS: Equal air entry with diminished breath sounds, patient has occasional cough, nonproductive, wheezing or rhonchi noted CVS: Regular rate and rhythm, normal S1 and S2, no gallops, no murmurs, no rubs ABDOMEN: Soft, nontender. No hepatosplenomegaly, normal bowel sounds, no guarding or rigidity. EXTREMITIES: No clubbing, no edema, no cyanosis, 2+ pulses and upper and lower extremities. MUSCULOSKELETAL: Muscle strength and tone normal. SPINE: No scoliosis or deformity SKIN: No rashes CENTRAL NERVOUS SYSTEM: Alert and oriented -3. No focal deficits, tone is normal in all 4 extremities. PSYCHIATRIC: Alert and oriented -3. Appropriate affect. Intact judgment and i nsight. - Labs CBC & Chem 7: 06/27/20 05:38 12/16/20 05:38 Assessment and Plan Plan: Assessment: #1. Acute exacerbation of chronic obstructive pulmonary disease, COVID 19 PCR was negative #2. Troponin elevation, with no acute ST or T-wave changes on the EKG, no complaints of chest pain, cardiology is following, and the plan is to proceed with a heart catheterization tomorrow on 06/29/2020 #3. Advanced COPD, latest PFT in December 2019 showing FEV1 of 36% of predicted, consistent with stage III COPD, not oxygen dependent at baseline #4. Former smoker, in remission for the past 2 years, carries at least 4 0-pack-year smoking history #5. GERD without esophagitis #6. History of multiple nonspecific pulmonary nodules being followed by Dr. Rosa in the pulmonary clinic #7. Cardiomyopathy, with EF of 30-35%, cardiology is following, rule out possibility of ischemic cardiomyopathy Plan: Continue current medical treatment, continue Symbicort, DuoNeb, continue oral prednisone, and antibiotics, from pulmonary perspective patient is stable, however he is undergoing cardiac workup in view of elevated troponins. He will likely remain in the hospital for next day or 2 depending on findings of the heart catheterization, otherwise from pulmonary perspective he can be cleared for discharge home when cleared by cardiology. I performed a history & physical examination of the patient and discussed their management with my nurse practitioner, Siobhan Razo. I reviewed the nurse practitioner's note and agree with the documented findings and plan of care. Lung sounds are positive for diminished breath sounds. The findings and the impression was discussed with the patient. I attest to the documentation by the nurse practitioner. Time with Patient: Less than 30
[2020-06-28] MEDS: ATORVASTATIN 20 MG TAB PO SCH (20:06)
[2020-06-28 20:25] LABS: Glucose,Whole Blood 105 mg/dL (75-99)
[2020-06-29] MEDS: IPRATROPIUM-ALBUTEROL 3 ML NEB INHALATION SCH ×4 (00:06→12:41)
[2020-06-29 05:58] VITALS: TEMP 97.7
[2020-06-29] MEDS ORDERED: ASPIRIN 325 MG TAB PO ONE (06:00)
[2020-06-29] MEDS ORDERED: ATORVASTATIN 80 MG TAB PO ONE (06:00)
[2020-06-29] MEDS: METOPROLOL TARTRATE 12.5 MG TAB PO SCH (06:26)
[2020-06-29] MEDS: predniSONE 20 MG TAB PO SCH (06:26)
[2020-06-29] MEDS: ASPIRIN 81 MG PO SCH (06:27)
[2020-06-29] MEDS: DOXYCYCLINE 100 MG CAP PO SCH (06:27)
[2020-06-29] MEDS ORDERED: LIDOCAINE 1% INJ 10MG/ML (20 ML MDV) ONE (07:20)
[2020-06-29] MEDS ORDERED: IV FLUID CONTINUATION 500 ML IV ONE (07:25)
[2020-06-29] MEDS ORDERED: MIDAZOLAM 2 MG/2 ML VIAL IVP ONE (07:39)
[2020-06-29] MEDS ORDERED: LIDOCAINE 1% INJ 10MG/ML (20 ML MDV) SQ ONE (07:40)
[2020-06-29] MEDS ORDERED: IOPAMIDOL-370 125ML BTL INJ ONE (07:58)
[2020-06-29] MEDS ORDERED: RX INFO: IV CONTRAST WAS GIVEN 1 EACH MISC MISCELLANE PRN (07:59)
--- NOTE | 2020-06-29 08:13 | CC ---
CARDIAC CATHETERIZATION REPORT INDICATION: Acute non ST-segment elevation [place]. PROCEDURE NOTE: After obtaining informed consent, left heart catheterization and coronary angiogram were performed via the right femoral artery using standard Anthony catheters. Patient tolerated the procedure well without any obvious immediate complication. A femoral angiogram was performed and Angio-Seal will be deployed for hemostasis. FINDINGS: 1. HEMODYNAMICS: Left ventricular end-diastolic pressure is 8 mm. There is no significant gradient across the aortic valve. 2. LEFT VENTRICULOGRAM: Left ventriculogram was not performed. 3. ANGIOGRAPHIC DATA: LEFT MAIN CORONARY ARTERY: Left main coronary artery is a normal-sized vessel and is free of stenosis. It divides into left anterior descending coronary artery and circumflex coronary artery. LAD and its branches, circumflex coronary artery and its branches are free of significant stenosis. Right coronary artery is a large dominant vessel and is free of significant disease. CONCLUSION: 1. Normal coronary arteries. 2. Normal left ventricular end-diastolic pressure. PLAN: Patient's troponin elevation is probably related to supply-demand mismatch. The patient's management is going to be in the form of risk factor modification. Patient received moderate conscious sedation. Total sedation time was 12 minutes. Patient received Angio-Seal for hemostasis. MMODL / IJN: [id number] /
[2020-06-29 08:55] VITALS: RESP 18
[2020-06-29] MEDS ORDERED: ACETAMINOPHEN TAB 325 MG TAB PO PRN (09:15)
[2020-06-29] MEDS: SYMBICORT 160-4.5 MCG INHALER INHALATION SCH (10:33)
[2020-06-29 12:31] VITALS: BP 118/72; PULSE 60
--- NOTE | 2020-06-29 14:15 | P.PN ---
Subjective Progress Note Date: 06/29/20 Principal diagnosis: Severe dyspnea, respiratory distress 60-year-old white male patient with a known history of COPD with baseline FEV1 of 59% of predicted, most recently his FEV1 dropped down to 36% as of 01/05/2020, patient is not oxygen dependent at baseline. Patient sees Dr. Rosa in the office, is a former smoker, he quit smoking a few years ago, he is on Ventolin, and DuoNeb nebulized treatments, however about a month ago his insurance stopped covering his inhaler in breathing medications. He has been progressively short of breath, on 06/27/2020 patient came in to the emergency department per EMS with complaints of severe shortness of breath, she was placed on supplemental oxygen per EMS which improved his breathing, he states he thinks it's related to the fact that he is no longer receiving albuterol. Patient can no longer afford his medication. He denied any chest pain, denied any fever, chills, no nausea vomiting. He has occasional cough, production of yellowish colored sputum. Chest x-ray showed small amount of bibasilar atelectasis. His vital signs have been stable, he has been afebrile, initially required supplemental oxygen, but his pulse ox was 96% on 2 L, room air pulse ox is 92%. He states his breathing significantly improved since his admission, able to speak in full sentences, he was given breathing treatments in the emergency de partment. His breathing much more comfortably right now, his lab work was reviewed showing CBC within normal limits, electrolytes and renal profile were unremarkable, d-dimer was negative at 0.21, he did have a troponin elevation of 0.117, 0.409, and 0.552. His EKG showed normal sinus rhythm with evidence of a septal infarct of undetermined age. Cardiology consultation has been requested. We were asked to see the patient in consultation for what seems to be an acute exacerbation of COPD. COVID PCR was sent and is pending at this time. On 06/28/2020 patient seen in follow-up on selective care unit, she is resting comfortably in bed, appears to be note acute distress, room air pulse ox is 93%, no fever or chills, and hemodynamically has been stable, no complaints of chest discomfort, patient does get short of breath with exertion, lung sounds do not reveal any wheezing or crackles or rhonchi, no significant cough or congestion, no hemoptysis, his COVID 19 PCR was found to be negative. Patient had elevated troponins that peaked at 0.552, he is being seen by cardiology, he is ec hocardiogram revealed moderately to severely impaired systolic function with an EF of 30-35%. The plan is to proceed with the cardiac catheterization tomorrow. On 06/29/2020 patient seen in follow-up on selective care unit, he status post heart catheterization, which showed normal coronary arteries, and normal LVEDP, vital signs are stable, no worsening dyspnea, no worsening cough or congestion, patient saturations are 96% on room air, his had no acute events overnight, he is breathing comfortably, no wheezing, no rhonchi. From pulmonary perspective he was treated with empiric antibiotics, oral steroids, in breathing treatments, his breathing has improved. Objective - Vital Signs Vital signs: Vital Signs Temp 97.7 F 06/29/20 05:58 Pulse 60 06/29/20 11:44 Resp 18 06/29/20 11:44 BP 118/72 06/29/20 11:44 Pulse Ox 96 06/29/20 11:44 Intake & Output 06/28/20 06/29/20 06/29/20 18:59 06:59 18:59 Intake Total 722 340 Balance 722 340 Weight 68.2 kg Intake: IV 100 Oral 722 240 Other: Voiding Method Urinal Urinal Urinal # Voids 1 1 - Exam GENERAL EXAM: Alert, very pleasant, 60-year-old white male, on room air, with a pulse ox of 93%, sedimentation pain, appears to be in no acute distress, speaking in full sentences, comfortable in no apparent distress. HEAD: Normocephalic/atraumatic. EYES: Normal reaction of pupils, equal size. Conjunctiva pink, sclera white. NOSE: Clear with pink turbinates. THROAT: No erythema or exudates. NECK: No masses, no JVD, no thyroid enlargement, no adenopathy. CHEST: No chest wall deformity. Symmetrical expansion. LUNGS: Equal air entry with diminished breath sounds, patient has occasional cough, nonproductive, wheezing or rhonchi noted CVS: Regular rate and rhythm, normal S1 and S2, no gallops, no murmurs, no rubs ABDOMEN: Soft, nontender. No hepatosplenomegaly, normal bowel sounds, no guarding or rigidity. EXTREMITIES: No clubbing, no edema, no cyanosis, 2+ pulses and upper and lower extremities. MUSCULOSKELETAL: Muscle strength and tone normal. SPINE: No scoliosis or deformity SKIN: No rashes CENTRAL NERVOUS SYSTEM: Alert and oriented -3. No focal deficits, tone is normal in all 4 extremities. PSYCHIATRIC: Alert and oriented -3. Appropriate affect. Intact judgment and insight. - Labs CBC & Chem 7: 06/27/20 05:38 06/27/20 05:38 Labs: Abnormal Lab Results - Last 24 Hours (Table) 06/28/20 Range/Units 20:23 POC Glucose (mg/dL) 105 H (75-99) mg/dL Assessment and Plan Plan: Assessment: #1. Acute exacerbation of chronic obstructive pulmonary disease, COVID 19 PCR was negative #2. Troponin elevation, with no acute ST or T-wave changes on the EKG, no complaints of chest pain, cardiology is following, and the plan is to proceed with a heart catheterization tomorrow on 06/29/2020 #3. Advanced COPD, latest PFT in December 2019 showing FEV1 of 36% of predicted, consistent with stage III COPD, not oxygen dependent at baseline #4. Former smoker, in remission for the past 2 years, carries at least [id number] smoking history #5. GERD without esophagitis #6. History of multiple nonspecific pulmonary nodules being followed by Dr. Rosa in the pulmonary clinic #7. Cardiomyopathy, with EF of 30-35%, cardiology is following, rule out possibility of ischemic cardiomyopathy Plan: Patient underwent heart catheterization, showing normal coronary arteries, and normal LVEDP, from pulmonary perspective patient is stable, his breathing has improved since admission, he can be considered for discharge home when cleared by cardiology, and she will need Symbicort 1604.5 mics inhaler 2 puffs twice daily, Ventolin HFA inhaler 1 puff 4 times a day as needed for shortness of breath, he can finish 7 day course of oral doxycycline, and he'll have a 15 day prednisone taper in addition to DuoNeb breathing treatments 4 times a day and as needed. Social work has been consulted for assistance with his prescription medications and patient will need outpatient follow-up with Dr. Ruiz in the office. I performed a history & physical examination of the patient and discussed their management with my nurse practitioner, Siobhan Razo. I reviewed the nurse practitioner's note and agree with the documented findings and plan of care. Lung sounds are positive for diminished breath sounds. The findings and the impression was discussed with the patient. I attest to the documentation by the nurse practitioner. Time with Patient: Less than 30
[2020-06-29] MEDS ORDERED: SODIUM CHLORIDE 0.9% 1,000 ML in EMPTY BAG 1 BAG IV ONE (17:00)
--- NOTE | 2020-06-29 17:53 | P.DS ---
Providers Date of admission: 06/27/20 07:35 Expected date of discharge: 06/29/20 Attending physician: Luc Daugherty Consults: 06/27/20 07:23 Consult Physician Routine Consulting Provider: Greg Lilly Consult Reason/Comments: Unstable angina Do you want consulting provider notified?: Yes Primary care physician: Domo Zarco [facility] Course: Chief Complaint: Shortness of breath History of presenting complaint: This is a 60-year-old patient of . Patient has known history of COPD. Because of no insurance patient ran out of his inhalers. He has been using his sister's bronchodilators and Symbicort. Symptoms have progressively been getting worse. One more short of breath and wheezing. Yesterday became far more so. He also noticed significant amount of perspiration. Decided to come in. Received bronchitis feeling better with the same. Some chest tightness. Some dizziness. No fever no chills. Admitted with acute COPD exacerbation, acute non-Q wave [place]. Started on bronchodilators steroids. Aspirin beta makayla. Lipitor. 2-D echo showed EF of 30-35%. Today-underwent cardiac catheterization. Found to have normal coronaries. Breathing much improved. Cleared by cardiology and pulmonary. Discussed with patient. police manager involved as patient has insurance problems. Consultation: Dr. Ruiz [facility] Physical examination: VITAL SIGNS: Afebrile, 56, 18, 122/69, 97% room air GENERAL: BMI 23.6, reclining in bed, comfortable EYES: Pupils equal. Conjunctiva normal. HEENT: External appearance of nose and ears normal, oral cavity grossly normal. NECK: JVD not raised; masses not palpable. HEART: First and second heart sounds are normal; no edema. LUNGS: Respiratory rate normal, improved air entry ABDOMEN: Soft, nontender, liver spleen not palpable, no masses palpable. PSYCH: Alert and oriented x3; mood and affect normal. Investigations: White count 8 hemoglobin 13.9 platelets 256 potassium 3.6 d-dimer 0.21 Potassium 3.6 bun 14 creatinine 0.64 Troponin I 0.117, 0.409 LDL 75 Coronavirus P/Cr-not detected EKG tracing personally reviewed by me-normal sinus rhythm with poor R-wave progression Chest x-ray film personally reviewed by me-hyperinflation, prominent pulmonary artery 2-D echocardiogram-EF 30-35% Assessment: -Probable acute non-Q wave IN. -Tako-pseubo syndrome -Acute COPD exacerbation in an ex-smoker Disposition: Home Patient Condition at Discharge: Stable Plan - Discharge Summary Discharge Rx Participant: Yes New Discharge Prescriptions: New Ipratropium-Albuterol Nebulize [Duoneb 0.5 mg-3 mg/3 ml Soln] 3 ml INHALATION QID #5 box predniSONE 0 mg PO DIRECTED 15 Days #30 tab Budesonide-Formot 160-4.5 Mcg [Symbicort 160-4.5 Mcg Inhaler] 2 puff INHALATION BID 30 Days #1 inhaler Budesonide/Formoterol Fumarate [Symbicort 160-4.5 Mcg Inhaler] 2 puff INHALATION BID 30 Days #1 inhaler Albuterol Inhaler [Ventolin Hfa Inhaler] 1 puff INHALATION RT-QID 30 Days #1 puff Doxycycline [Vibramycin] 100 mg PO BID 7 Days #14 capsule Losartan [Cozaar] 25 mg PO DAILY #30 tab Atorvastatin [Lipitor] 20 mg PO HS #30 tab Metoprolol Tartrate [Lopressor] 25 mg PO BID #60 tablet Discharge Medication List Albuterol Inhaler [Ventolin Hfa Inhaler] 1 puff INHALATION RT-QID 30 Days #1 puff 06/29/20 [Rx] Atorvastatin [Lipitor] 20 mg PO HS #30 tab 06/29/20 [Rx] Budesonide-Formot 160-4.5 Mcg [Symbicort 160-4.5 Mcg Inhaler] 2 puff INHALATION BID 30 Days #1 inhaler 06/29/20 [Rx] Budesonide/Formoterol Fumarate [Symbicort 160-4.5 Mcg Inhaler] 2 puff INHALATION BID 30 Days #1 inhaler 06/29/20 [Rx] Doxycycline [Vibramycin] 100 mg PO BID 7 Days #14 capsule 06/29/20 [Rx] Ipratropium-Albuterol Nebulize [Duoneb 0.5 mg-3 mg/3 ml Soln] 3 ml INHALATION QID #5 box 06/29/20 [Rx] Losartan [Cozaar] 25 mg PO DAILY #30 tab 06/29/20 [Rx] Metoprolol Tartrate [Lopressor] 25 mg PO BID #60 tablet 06/29/20 [Rx] predniSONE 0 mg PO DIRECTED 15 Days #30 tab 06/29/20 [Rx] Follow up Appointment(s)/Referral(s): Edison Ruiz MD [STAFF PHYSICIAN] - 07/02/20 9:30 am Raymond Quintanilla MD [STAFF PHYSICIAN] - 1 Week (Office will call to schedule appointment. ) Domo Zarco MD [Primary Care Provider] - 07/04/20 11:00 am Patient Instructions/Handouts: *Surgery [facility] - After Heart Catheterization - Transfer Coordinator Instructions
--- NOTE | 2020-06-29 17:55 | P.PN ---
Progress Note - Text Progress Note Date: 06/28/20 Chief Complaint: Shortness of breath History of presenting complaint: This is a 60-year-old patient of . Patient has known history of COPD. Because of no insurance patient ran out of his inhalers. He has been using his sister's bronchodilators and Symbicort. Symptoms have progressively been getting worse. One more short of breath and wheezing. Yesterday became far more so. He also noticed significant amount of perspiration. Decided to come in. Received bronchitis feeling better with the same. Some chest tightness. Some dizziness. No fever no chills. Admitted with-COPD exacerbation and acute non-Q wave TN. Placed on bronchodilators steroids aspirin and beta makayla Lipitor. Today-breathing better. No chest pain. Oral intake fair. Less wheezing. Review of systems: Was done for constitutional, cardiovascular, GI, pulmonary. relevant finding as above Active Medications Albuterol/Ipratropium (Ipratropium-Albuterol 3 Ml Neb) 3 ml INHALATION RT-Q2H PRN PRN Reason: Shortness Of Breath Or Wheezing Albuterol/Ipratropium (Ipratropium-Albuterol 3 Ml Neb) 3 ml INHALATION RT-Q4H [facility] Last Admin: 06/28/20 19:33 Dose: 3 ml Documented by: Alprazolam (Alprazolam 0.25 Mg Tab) 0.25 mg PO Q6HR PRN PRN Reason: Mild Anxiety Alprazolam (Alprazolam 0.5 Mg Tab) 0.5 mg PO Q6HR PRN PRN Reason: Moderate Anxiety Aspirin (Aspirin 81 Mg) 81 mg PO DAILY [facility] Last Admin: 06/28/20 08:36 Dose: 81 mg Documented by: Aspirin (Aspirin 325 Mg Tab) 325 mg PO ONCE ONE Stop: 06/29/20 06:01 Atorvastatin Calcium (Atorvastatin 20 Mg Tab) 20 mg PO HS [facility] Last Admin: 06/28/20 20:06 Dose: 20 mg Documented by: Atorvastatin Calcium (Atorvastatin 80 Mg Tab) 80 mg PO ONCE ONE Stop: 06/29/20 06:01 Budesonide/Formoterol Fumarate (Symbicort 160-4.5 Mcg Inhaler) 2 puff INHALATION RT-BID [facility] Last Admin: 06/28/20 19:33 Dose: 2 puff Documented by: Doxycycline Monohydrate (Doxycycline 100 Mg Cap) 100 mg PO BID [facility] Last Admin: 06/28/20 20:06 Dose: 100 mg Documented by: Sodium Chloride 1,000 ml/ IV (Solution) 1,000 mls @ 72.9 mls/hr IV .[id number] ONE Stop: 06/30/20 06:43 Metoprolol Tartrate (Metoprolol Tartrate 12.5 Mg Tab) 12.5 mg PO BID [facility] Last Admin: 06/28/20 20:06 Dose: 12.5 mg Documented by: Nitroglycerin (Nitroglycerin Sl Tabs 0.4 Mg Tab) 0.4 mg SUBLINGUAL Q5M PRN PRN Reason: Chest Pain Prednisone (Prednisone 20 Mg Tab) 40 mg PO DAILY [facility] Last Admin: 06/28/20 08:37 Dose: 40 mg Documented by: Physical examination: VITAL SIGNS: 98.3, 63, 16, 128/72, 96% on 2 L GENERAL: BMI 23.6, sitting up in bed, less, short of breath. EYES: Pupils equal. Conjunctiva normal. HEENT: External appearance of nose and ears normal, oral cavity grossly normal. NECK: JVD not raised; masses not palpable. HEART: First and second heart sounds are normal; no edema. LUNGS: Respiratory rate increased, diminished breath sounds prolonged expiration ABDOMEN: Soft, nontender, liver spleen not palpable, no masses palpable. PSYCH: Alert and oriented x3; mood and affect normal. Investigations: White count 8 hemoglobin 13.9 platelets 256 potassium 3.6 d-dimer 0.21 Potassium 3.6 bun 14 creatinine 0.64 Troponin I 0.117, 0.409, 0.55 to LDL 75 Coronavirus P/Cr-not detected EKG tracing personally reviewed by me-normal sinus rhythm with poor R-wave progression Chest x-ray film personally reviewed by me-hyperinflation, prominent pulmonary artery 2-D echo-EF 30-35% Assessment: -Probable acute non-Q wave [place]. Patient is factors include his age, history of smoking. Patient is poor R-wave progression anteriorly leads. In rise in his troponins. Pending cardiac catheterization -Acute ischemic cardiomyopathy, EF 30-35% -Acute COPD exacerbation in an ex-smoker Plan: Continue current medication treatment plan. Care discussed with the patient. For cardiac catheterization tomorrow.
[2020-06-30] MEDS ORDERED: METOPROLOL SUCCINATE (ER) 25 MG TAB.ER.24H PO SCH (09:00)
[2020-06-30] MEDS ORDERED: LOSARTAN 25 MG TAB PO SCH (09:00)
== END 2020-06-29 15:30 | disposition home or self-care (01) ==
LOC: EC 05:09 → 3SCARD 07:35 → INTOOBSV 07:35 → 3SCARD 09:07 → UNDODISIN 06-29 15:30
PROVIDERS: ADMIT Hospitalist; ATTEND Hospitalist
DX: I21.4 Non-ST elevation (NSTEMI) myocardial infarction (principal); I51.81 Takotsubo syndrome; J44.1 Chronic obstructive pulmonary disease with (acute) exacerbation; R91.8 Other nonspecific abnormal finding of lung field; I25.5 Ischemic cardiomyopathy; K21.9 Gastro-esophageal reflux disease without esophagitis; Z20.828 Contact with and (suspected) exposure to other viral communicable diseases; Z79.899 Other long term (current) drug therapy; Z79.51 Long term (current) use of inhaled steroids; Z87.01 Personal history of pneumonia (recurrent); Z87.09 Personal history of other diseases of the respiratory system; Z90.49 Acquired absence of other specified parts of digestive tract; Z98.890 Other specified postprocedural states; Z87.891 Personal history of nicotine dependence; Z80.1 Family history of malignant neoplasm of trachea, bronchus and lung; Z82.5 Family history of asthma and other chronic lower respiratory diseases
CPT/HCPCS: 93005 ×2; 99285; 36415; 94640 ×6; 94760 ×2; 93458; 85379; 80061; 80053; 84484; 85025; 85610; 85730; 83036; 71046; G0378 ×3; C8929; C1769 ×2; C1760; C1894; U0003; J2250; J2001; J7512 ×3; Q9950; Q9967; 93306

== ENCOUNTER 2021-08-03 10:17 | Emergency (ER) | payer OTHER ==
[2021-08-03] MEDS ORDERED: DEXAMETHASONE SOD PHOSPHATE 10 MG/ML 1 ML VIAL IV STA (11:12)
[2021-08-03] MEDS ORDERED: diphenhydrAMINE 50 MG/ML 1 ML VIAL IVP STA (11:12)
[2021-08-03] MEDS ORDERED: SODIUM CHLORIDE 0.9% 1,000 ML IV STA (11:12)
[2021-08-03] MEDS ORDERED: METOCLOPRAMIDE 5 MG/ML 2 ML VIAL IVP STA (11:12)
[2021-08-03] MEDS ORDERED: KETOROLAC 15 MG/ML 1 ML VIAL IVP STA (11:12)
[2021-08-03] MEDS ORDERED: MAGNESIUM SULFATE-D5W PMX 1 GM in DEXTROSE/WATER 1 100ML.BAG IVPB ONE (11:13)
--- NOTE | 2021-08-03 11:21 | XR ---
EXAMINATION TYPE: XR chest 1V DATE OF EXAM: 08/03/2021 11:16 AM COMPARISON:Multiple radiographs, with the most recent on 06/27/2020. TECHNIQUE: Frontal view of the chest. CLINICAL INDICATION:Male, 61 years old with history of cough; FINDINGS: Lungs/Pleura: There is no evidence of pleural effusion, focal consolidation, or pneumothorax. Pulmonary vascularity: Unremarkable. Heart/mediastinum: Cardiomediastinal silhouette is unremarkable. Musculoskeletal: No acute osseous pathology. IMPRESSION: No acute cardiopulmonary disease/process.
[2021-08-03] MEDS ORDERED: SYMBICORT 160-4.5 MCG INHALER INHALATION STA (11:41)
--- NOTE | 2021-08-03 13:04 | ED ---
General Adult HPI - General Chief complaint: Upper Respiratory Infection Stated complaint: sob Source: patient Mode of arrival: ambulatory Limitations: no limitations - History of Present Illness Initial comments: The patient is a 61-year-old male with past medical history of COPD who presents to the emergency department with generalized fatigue and headache. States that he is concerned he has Covid. He began feeling ill 2 days ago. States he's had a headache, generalized body aches. Denies chest pain or shortness of breath. No fevers. Denies any sick contacts. He is not vaccinated. He took Tylenol for his headache and states that it originally helped however the headache returned. Denies photophobia. No neck stiffness. Admits to nausea without vomiting. No diarrhea. Patient does use Symbicort and albuterol inhalers. States that he has been out of this medication and is requesting refills. No other alleviating, precipitating or modifying factors - Related Data Previous Rx's Medication Instructions Recorded Albuterol Inhaler [Ventolin Hfa 1 puff INHALATION RT-QID 30 Days 06/29/20 Inhaler] #1 puff Atorvastatin [Lipitor] 20 mg PO HS #30 tab 06/29/20 Budesonide-Formot 160-4.5 Mcg 2 puff INHALATION BID 30 Days #1 06/29/20 [Symbicort 160-4.5 Mcg Inhaler] inhaler Budesonide/Formoterol Fumarate 2 puff INHALATION BID 30 Days #1 06/29/20 [Symbicort 160-4.5 Mcg Inhaler] inhaler Doxycycline [Vibramycin] 100 mg PO BID 7 Days #14 capsule 06/29/20 Ipratropium-Albuterol Nebulize 3 ml INHALATION QID #5 box 06/29/20 [Duoneb 0.5 mg-3 mg/3 ml Soln] Losartan [Cozaar] 25 mg PO DAILY #30 tab 06/29/20 Metoprolol Tartrate [Lopressor] 25 mg PO BID #60 tablet 06/29/20 predniSONE 0 mg PO DIRECTED 15 Days #30 tab 06/29/20 Albuterol Sulfate [Proair Hfa] 1 - 2 puff INHALATION Q4HR PRN 08/03/21 #8.5 gm Budesonide-Formot 160-4.5 Mcg 2 puff INHALATION BID #10.2 gm 08/03/21 [Symbicort 160-4.5 Mcg Inhaler] Dexamethasone [Decadron] 6 mg PO DAILY #5 tablet 08/03/21 Allergies Allergy/AdvReac Type Severity Reaction Status Date / Time No Known Allergies Allergy Verified 08/03/21 10:30 Review of Systems ROS Statement: Those systems with pertinent positive or pertinent negative responses have been documented in the HPI. ROS Other: All systems not noted in ROS Statement are negative. Past Medical History Past Medical History: COPD, Pneumonia Additional Past Medical History / Comment(s): Chronic Bronchitis History of Any Multi-Drug Resistant Organisms: None Reported Past Surgical History: Appendectomy, Orthopedic Surgery Additional Past Surgical History / Comment(s): hand Past Anesthesia/Blood Transfusion Reactions: No Reported Reaction Past Psychological History: No Psychological Hx Reported Smoking Status: Never smoker Past Alcohol Use History: None Reported Past Drug Use History: Marijuana - Past Family History Father Family Medical History: No Reported History Mother Family Medical History: Cancer Additional Family Medical History / Comment(s): lung cancer Sister(s) Family Medical History: Asthma, COPD General Exam Limitations: no limitations Course Vital Signs 08/03/21 08/03/21 08/03/21 10:28 11:37 14:00 Temperature 98.3 F 98.5 F Pulse Rate 78 70 74 Respiratory 24 20 16 Rate Blood Pressure 140/84 138/77 125/78 O2 Sat by Pulse 97 97 96 Oximetry 08/03/21 14:50 Temperature 98.4 F Pulse Rate 72 Respiratory 16 Rate Blood Pressure 125/86 O2 Sat by Pulse 95 Oximetry Medical Decision Making - Medical Decision Making Upon arrival patient's placed into room 10. A thorough history and physical exam was performed. IV is established the patient was given a migraine cocktail. Patient is swabbed for covid which is positive. Chest x-ray is performed which demonstrates no acute process. Patient is reevaluated and reports to market improvement in his headache. He does qualify for antibody infusion. Patient will be discharged home. He was given a dose of Decadron 10 mg. He will be placed on another 5 days' worth of Decadron. I also refilled the patient's Symbicort and albuterol inhalers. He is to follow-up with his primary care doctor in 2-4 days. Return to the emergency department for any new or worsening symptoms per patient started vomiting condition - Lab Data Lab Results 08/03/21 Range/Units 11:16 Coronavirus (PCR) Detected A (Not Detectd) Disposition Clinical Impression: COVID-19, Cephalgia Disposition: HOME SELF-CARE Condition: Stable Instructions (If sedation given, give patient instructions): Coronavirus Disease 2019 (COVID-19) Additional Instructions: You received antibody infusion today. Take the steroids daily starting tomorrow. Use your inhalers as directed. Return to the ED for any new or worsening symptoms - especially a pulse ox less than 90% Prescriptions: Dexamethasone [Decadron] 6 mg PO DAILY #5 tablet Albuterol Sulfate [Proair Hfa] 1 - 2 puff INHALATION Q4HR PRN #8.5 gm PRN Reason: difficulty in breathing Budesonide-Formot 160-4.5 Mcg [Symbicort 160-4.5 Mcg Inhaler] 2 puff INHALATION BID #10.2 gm Is patient prescribed a controlled substance at d/c from ED?: No Referrals: Domo Zarco MD [Primary Care Provider] - 1-2 days Time of Disposition: 13:04
[2021-08-03] MEDS ORDERED: SODIUM CHLORIDE 0.9% 50 ML IVPB ONE (13:30)
[2021-08-03] MEDS ORDERED: SOTROVIMAB (EUA) 500 MG in SODIUM CHLORIDE 0.9% 100 ML IVPB ONE (14:00)
[2021-08-03 14:52] VITALS: RESP 16
[2021-08-03] MEDS ORDERED: ACETAMINOPHEN TAB 325 MG TAB PO STA ×2 (16:11→16:15)
[2021-08-03 16:18] VITALS: BP 144/86; PULSE 76; TEMP 98.6
== END 2021-08-03 16:20 | disposition home or self-care (01) ==
LOC: EC 10:17
DX: U07.1 COVID-19 (principal); R51.9 Headache, unspecified; J44.9 Chronic obstructive pulmonary disease, unspecified; F12.90 Cannabis use, unspecified, uncomplicated; Z90.49 Acquired absence of other specified parts of digestive tract
CPT/HCPCS: 99284; 96365; 96375 ×4; 94640; 87635; 71045; J1200; J1100; J2765; J3475; J1885; Q0247

== ENCOUNTER 2021-09-20 06:37 | Emergency (ER) | payer OTHER ==
[2021-09-20] MEDS ORDERED: IPRATROPIUM-ALBUTEROL 3 ML NEB INHALATION STA (06:53)
[2021-09-20] MEDS ORDERED: methylPREDNISolone SOD SUCCI 125 MG/2 ML VIAL IV STA (06:53)
--- NOTE | 2021-09-20 06:56 | ED ---
General Adult HPI - General Chief complaint: Shortness of Breath Stated complaint: SOB, low O2 Time Seen by Provider: 09/20/21 06:39 Source: patient, RN notes reviewed Mode of arrival: ambulatory Limitations: no limitations - History of Present Illness Initial comments: Patient is a 61-year-old male seen to be a past medical history for COPD, presented to the emergency room today with chief complaint of increased shortness of breath and congestion over the last week. Patient does admit that he ran out of his medication is Symbicort and also his inhalers. He is been doing some breathing treatments at home. He states had little relief today. Patient states is consistent with COPD has had before. Patient states he has been in touch with his doctor's office and states that the prescription was sent to the pharmacy is been waiting. Patient denies any recent fever, chills, chest pain, back pain, abdominal pain, nausea or vomiting, headaches or visual changes, or any other complaints. - Related Data Previous Rx's Medication Instructions Recorded Albuterol Inhaler [Ventolin Hfa 1 puff INHALATION RT-QID 30 Days 06/29/20 Inhaler] #1 puff Atorvastatin [Lipitor] 20 mg PO HS #30 tab 06/29/20 Budesonide-Formot 160-4.5 Mcg 2 puff INHALATION BID 30 Days #1 06/29/20 [Symbicort 160-4.5 Mcg Inhaler] inhaler Budesonide/Formoterol Fumarate 2 puff INHALATION BID 30 Days #1 06/29/20 [Symbicort 160-4.5 Mcg Inhaler] inhaler Doxycycline [Vibramycin] 100 mg PO BID 7 Days #14 capsule 06/29/20 Ipratropium-Albuterol Nebulize 3 ml INHALATION QID #5 box 06/29/20 [Duoneb 0.5 mg-3 mg/3 ml Soln] Losartan [Cozaar] 25 mg PO DAILY #30 tab 06/29/20 Metoprolol Tartrate [Lopressor] 25 mg PO BID #60 tablet 06/29/20 predniSONE 0 mg PO DIRECTED 15 Days #30 tab 06/29/20 Albuterol Sulfate [Proair Hfa] 1 - 2 puff INHALATION Q4HR PRN 08/03/21 #8.5 gm Budesonide-Formot 160-4.5 Mcg 2 puff INHALATION BID #10.2 gm 08/03/21 [Symbicort 160-4.5 Mcg Inhaler] Dexamethasone [Decadron] 6 mg PO DAILY #5 tablet 08/03/21 Albuterol Inhaler [Ventolin Hfa 1 puff INHALATION RT-QID #8 gm 09/20/21 Inhaler] Budesonide-Formot 160-4.5 Mcg 2 puff INHALATION BID 14 Days each 09/20/21 [Symbicort 160-4.5 Mcg Inhaler] predniSONE 50 mg PO DAILY #5 tab 09/20/21 Allergies Allergy/AdvReac Type Severity Reaction Status Date / Time No Known Allergies Allergy Verified 09/20/21 06:42 Review of Systems ROS Statement: Those systems with pertinent positive or pertinent negative responses have been documented in the HPI. ROS Other: All systems not noted in ROS Statement are negative. Past Medical History Past Medical History: COPD, Pneumonia Additional Past Medical History / Comment(s): Chronic Bronchitis History of Any Multi-Drug Resistant Organisms: None Reported Past Surgical History: Appendectomy, Orthopedic Surgery Additional Past Surgical History / Comment(s): hand Past Anesthesia/Blood Transfusion Reactions: No Reported Reaction Past Psychological History: No Psychological Hx Reported Smoking Status: Former smoker Past Alcohol Use History: None Reported Past Drug Use History: Marijuana - Past Family History Father Family Medical History: No Reported History Mother Family Medical History: Cancer Additional Family Medical History / Comment(s): lung cancer Sister(s) Family Medical History: Asthma, COPD General Exam - General Exam Comments Initial Comments: General: The patient is awake and alert, in no distress, and does not appear acutely ill. Eye: Pupils are equal, round and reactive to light, extra-ocular movements are intact. There is normal conjunctiva bilaterally. No signs of icterus. Ears, nose, mouth and throat: There are moist mucous membranes and no oral lesions. Neck: The neck is supple. Cardiovascular: There is a regular rate and rhythm. No murmur, rub or gallop is appreciated. Respiratory: Decreased lung sounds bilaterally. respirations are non-labored, breath sounds are equal. No stridor, rales, or rhonchi. Musculoskeletal: Normal ROM, no tenderness. Strength 5/5. Sensation intact. Neurological: A&O x 3. CN II-XII intact, There are no obvious motor or sensory deficits. Coordination appears grossly intact. Speech is normal. Skin: Skin is warm and dry and no rashes or lesions are noted. Psychiatric: Cooperative, appropriate mood & affect, normal judgment. Limitations: no limitations Course Vital Signs 09/20/21 09/20/21 09/20/21 06:39 07:14 07:25 Temperature 98.4 F Pulse Rate 82 73 67 Respiratory 26 H Rate Blood Pressure 145/87 O2 Sat by Pulse 94 L Oximetry 09/20/21 07:55 Temperature Pulse Rate 73 Respiratory 18 Rate Blood Pressure 125/90 O2 Sat by Pulse 100 Oximetry EKG Findings - EKG Comments: EKG Findings:: EKG performed: 650. Normal sinus rhythm at 69 bpm. MT interval 140. QRS 118. QT/QTc 404/423. No acute ST changes. Medical Decision Making - Medical Decision Making Patient reexamined is resting couple. Patient does admit to feeling better after breathing treatment, steroids here in emergency room. His covert was negative. Chest x-ray is negative for any sign of pneumonia. Labs were discussed with the patient. She feels comfortable being discharged home at this time. Patient will be given a prescription for Symbicort, steroids, and albuterol inhaler. Is advised follow-up with his family doctor return here to emergency room if any symptoms increase or worsen or for any other concerns. - Lab Data Result diagrams: 09/20/21 06:55 09/20/21 06:55 Lab Results 09/20/21 09/20/21 09/20/21 Range/Units 06:55 06:55 06:55 WBC 9.3 (3.8-10.6) k/uL RBC 4.89 (4.30-5.90) m/uL Hgb 15.0 (13.0-17.5) gm/dL Hct 44.0 (39.0-53.0) % MCV 90.0 (80.0-100.0) fL MCH 30.7 (25.0-35.0) pg MCHC 34.1 (31.0-37.0) g/dL RDW 12.4 (11.5-15.5) % Plt Count 300 (150-450) k/uL MPV 6.8 Neutrophils % 59 % Lymphocytes % 25 % Monocytes % 8 % Eosinophils % 5 % Basophils % 1 % Neutrophils # 5.5 (1.3-7.7) k/uL Lymphocytes # 2.3 (1.0-4.8) k/uL Monocytes # 0.7 (0-1.0) k/uL Eosinophils # 0.5 (0-0.7) k/uL Basophils # 0.1 (0-0.2) k/uL Sodium 138 (137-145) mmol/L Potassium 3.7 (3.5-5.1) mmol/L Chloride 106 (98-107) mmol/L Carbon Dioxide 27 (22-30) mmol/L Anion Gap 5 mmol/L BUN 14 (9-20) mg/dL Creatinine 0.65 L (0.66-1.25) mg/dL Est GFR (CKD-EPI)AfAm >90 (>60 ml/min/1.73 sqM) Est GFR (CKD-EPI)NonAf >90 (>60 ml/min/1.73 sqM) Glucose 102 H (74-99) mg/dL Calcium 9.2 (8.4-10.2) mg/dL Troponin I <0.012 (0.000-0.034) ng/mL Coronavirus (PCR) (Not Detectd) 09/20/21 Range/Units 07:11 WBC (3.8-10.6) k/uL RBC (4.30-5.90) m/uL Hgb (13.0-17.5) gm/dL Hct (39.0-53.0) % MCV (80.0-100.0) fL MCH (25.0-35.0) pg MCHC (31.0-37.0) g/dL RDW (11.5-15.5) % Plt Count (150-450) k/uL MPV Neutrophils % % Lymphocytes % % Monocytes % % Eosinophils % % Basophils % % Neutrophils # (1.3-7.7) k/uL Lymphocytes # (1.0-4.8) k/uL Monocytes # (0-1.0) k/uL Eosinophils # (0-0.7) k/uL Basophils # (0-0.2) k/uL Sodium (137-145) mmol/L Potassium (3.5-5.1) mmol/L Chloride (98-107) mmol/L Carbon Dioxide (22-30) mmol/L Anion Gap mmol/L BUN (9-20) mg/dL Creatinine (0.66-1.25) mg/dL Est GFR (CKD-EPI)AfAm (>60 ml/min/1.73 sqM) Est GFR (CKD-EPI)NonAf (>60 ml/min/1.73 sqM) Glucose (74-99) mg/dL Calcium (8.4-10.2) mg/dL Troponin I (0.000-0.034) ng/mL Coronavirus (PCR) Not Detected (Not Detectd) Disposition Clinical Impression: COPD exacerbation Disposition: ADMITTED IP TO THIS HOSP Instructions (If sedation given, give patient instructions): COPD (Chronic Obstructive Pulmonary Disease) (ED) Additional Instructions: Please use medication as discussed. Please follow-up with family doctor in the next 2 days of symptoms have not improved. Please return to emergency room if the symptoms increase or worsen or for any other concerns. Prescriptions: predniSONE 50 mg PO DAILY #5 tab Budesonide-Formot 160-4.5 Mcg [Symbicort 160-4.5 Mcg Inhaler] 2 puff INHALATION BID 14 Days each Albuterol Inhaler [Ventolin Hfa Inhaler] 1 puff INHALATION RT-QID #8 gm Is patient prescribed a controlled substance at d/c from ED?: No If prescribed controlled substance>3 days was MAPS reviewed?: Prescribed <3 Days Referrals: Domo Zarco MD [Primary Care Provider] - 1-2 days Time of Disposition: 09:03
[2021-09-20 07:06] LABS: Basophils # (A) 0.1 k/uL (0-0.2); Basophils % (A) 1 %; Eosinophils # (A) 0.5 k/uL (0-0.7); Eosinophils % (A) 5 %; Lymphocytes # (A) 2.3 k/uL (1.0-4.8); Lymphocytes % (A) 25 %; MCH 30.7 pg (25.0-35.0); MCHC 34.1 g/dL (31.0-37.0); Mean Platelet Volume 6.8; Monocytes # (A) 0.7 k/uL (0-1.0); Monocytes % (A) 8 %; Neutrophils # (A) 5.5 k/uL (1.3-7.7); Neutrophils % (A) 59 %; Platelet Count 300 k/uL (150-450); RBC 4.89 m/uL (4.30-5.90); RDW 12.4 % (11.5-15.5); WBC 9.3 k/uL (3.8-10.6)
[2021-09-20 07:19] LABS: African American GFR (CKD) >90 (>60 ml/min/1.73 sqM); Anion Gap 5 mmol/L; Blood Urea Nitrogen 14 mg/dL (9-20); Calcium 9.2 mg/dL (8.4-10.2); Carbon Dioxide 27 mmol/L (22-30); Chloride 106 mmol/L (98-107); Glucose 102 mg/dL (74-99); Non-African American GFR(CKD) >90 (>60 ml/min/1.73 sqM); Potassium 3.7 mmol/L (3.5-5.1); Sodium 138 mmol/L (137-145)
--- NOTE | 2021-09-20 07:27 | XR ---
EXAMINATION TYPE: XR chest 1V portable DATE OF EXAM: 09/20/2021 COMPARISON: 08/03/2021 HISTORY: Shortness of breath TECHNIQUE: Frontal and lateral views of the chest are obtained. FINDINGS: Scattered senescent parenchymal changes noted. Hyperinflation compatible with COPD. No evidence for infiltrate. No evidence for atelectasis. Heart size is stable. Mediastinal structures are stable and grossly unremarkable. No evidence for hilar prominence. Degenerative changes dorsal spine. IMPRESSION: 1. No evidence for acute pulmonary disease.
[2021-09-20 09:06] VITALS: BP 130/99; PULSE 71; RESP 20; TEMP 98.2
== END 2021-09-20 09:14 | disposition other institution (70) ==
LOC: EC 06:37
DX: J44.1 Chronic obstructive pulmonary disease with (acute) exacerbation (principal); F12.90 Cannabis use, unspecified, uncomplicated; Z20.822 Contact with and (suspected) exposure to COVID-19; Z90.49 Acquired absence of other specified parts of digestive tract; Z87.891 Personal history of nicotine dependence
CPT/HCPCS: 99285; 96374; 36415; 94640; 93005; 80048; 84484; 85025; 87635; 71045; J2930

== ENCOUNTER 2021-10-13 19:47 | Emergency (ER) | payer OTHER ==
--- NOTE | 2021-10-13 20:49 | ED ---
General Adult HPI - General Chief complaint: Abdominal Pain Stated complaint: Abdominal Pain,Bodyaches,Fever Time Seen by Provider: 10/13/21 20:47 Source: patient Mode of arrival: wheelchair Limitations: no limitations - History of Present Illness Initial comments: Patient presents to the ED with his sister for evaluation. Patient states that he has had "crampy" lower abdominal pain since last night. Patient states that his pain waxes and wanes, and he currently reports that his pain is very mild. Patient admits to having associated nausea, but he denies vomiting. Patient states that he has not moved his bowels since yesterday. Patient also states that he has had generalized body aches since last night. Patient denies trauma or injury, fever, headache, focal neuro deficit, chest pain or pressure, dyspnea, cough or cold symptoms, palpitations, dizziness, upper abdominal pain, back pain, vomiting, diarrhea, bloody or melanotic stool, dysu ricki/hematuria/urinary frequency/urinary symptoms, decreased urine output, or any other symptoms or complaints. Patient states that he was diagnosed with Covid last month. - Related Data Home Medications Medication Instructions Recorded Confirmed Albuterol Sulfate [Proair Hfa] 1 puff INHALATION RT-QID 10/13/21 10/13/21 Budesonide/Formoterol Fumarate 2 puff INHALATION RT-BID 10/13/21 10/13/21 [Symbicort 160-4.5 Mcg Inhaler] Allergies Allergy/AdvReac Type Severity Reaction Status Date / Time No Known Allergies Allergy Verified 10/13/21 21:32 Review of Systems ROS Statement: Those systems with pertinent positive or pertinent negative responses have been documented in the HPI. ROS Other: All systems not noted in ROS Statement are negative. Past Medical History Past Medical History: COPD, Pneumonia Additional Past Medical History / Comment(s): Chronic Bronchitis History of Any Multi-Drug Resistant Organisms: None Reported Past Surgical History: Appendectomy, Orthopedic Surgery Additional Past Surgical History / Comment(s): hand Past Anesthesia/Blood Transfusion Reactions: No Reported Reaction Past Psychological History: No Psychological Hx Reported Smoking Status: Former smoker Past Alcohol Use History: None Reported Past Drug Use History: Marijuana - Past Family History Father Family Medical History: No Reported History Mother Family Medical History: Cancer Additional Family Medical History / Comment(s): lung cancer Sister(s) Family Medical History: Asthma, COPD General Exam Limitations: no limitations General appearance: alert, in no apparent distress Head exam: Present: atraumatic, normocephalic Eye exam: Present: normal appearance, EOMI ENT exam: Present: mucous membranes moist Neck exam: Present: other (Trachea is in midline) Respiratory exam: Present: normal lung sounds bilaterally. Absent: respiratory distress, wheezes, rales, rhonchi, stridor Cardiovascular Exam: Present: regular rate, normal rhythm, normal heart sounds, other (Normal radial pulses bilaterally) GI/Abdominal exam: Present: soft, normal bowel sounds, other (Mild generalized lower abdominal tenderness). Absent: distended, guarding, rebound Extremities exam: Absent: tenderness, pedal edema Back exam: Absent: CVA tenderness (R), CVA tenderness (L) Neurological exam: Present: alert, oriented X3. Absent: motor sensory deficit Psychiatric exam: Present: normal affect, normal mood Skin exam: Present: warm, dry, intact, normal color Course Vital Signs 10/13/21 19:54 Temperature 98.0 F Pulse Rate 89 Respiratory 18 Rate Blood Pressure 127/94 O2 Sat by Pulse 97 Oximetry - Reevaluation(s) Reevaluation #1: 10/13/21 22:04 Patient denies development of any new symptoms while in the ED. Patient's abdomen remains soft and without any surgical signs on examination. Patient and sister are with the patient's test results, and patient feels comfortable going home with his sister at this time. Patient was counseled about diverticulitis, and he was clearly explained return and follow-up instructions. Patient was instructed to follow up closely with his primary care provider. Patient feels With this plan. Medical Decision Making - Medical Decision Making Patient has a mild leukocytosis, and his CT abdomen/pelvis shows findings consistent with uncomplicated acute diverticulitis. Patient has no surgical findings on examination. Patient was given a dose of IV and oral antibiotics in the ED. Will discharge patient home with prescriptions for ciprofloxacin and Flagyl, as well as EC starter packs of Tylenol #3 and ODT Zofran. Patient feels comfortable with this plan. - Lab Data Result diagrams: 10/13/21 21:16 10/13/21 21:16 Lab Results 10/13/21 10/13/21 10/13/21 Range/Units 21:16 21:16 21:16 WBC 11.9 H (3.8-10.6) k/uL RBC 4.93 (4.30-5.90) m/uL Hgb 14.8 (13.0-17.5) gm/dL Hct 44.4 (39.0-53.0) % MCV 90.1 (80.0-100.0) fL MCH 30.1 (25.0-35.0) pg MCHC 33.4 (31.0-37.0) g/dL RDW 12.4 (11.5-15.5) % Plt Count 312 (150-450) k/uL MPV 6.9 Neutrophils % 78 % Lymphocytes % 13 % Monocytes % 6 % Eosinophils % 1 % Basophils % 0 % Neutrophils # 9.3 H (1.3-7.7) k/uL Lymphocytes # 1.6 (1.0-4.8) k/uL Monocytes # 0.7 (0-1.0) k/uL Eosinophils # 0.1 (0-0.7) k/uL Basophils # 0.0 (0-0.2) k/uL Sodium 136 L (137-145) mmol/L Potassium 4.1 (3.5-5.1) mmol/L Chloride 102 (98-107) mmol/L Carbon Dioxide 24 (22-30) mmol/L Anion Gap 10 mmol/L BUN 12 (9-20) mg/dL Creatinine 0.60 L (0.66-1.25) mg/dL Est GFR (CKD-EPI)AfAm >90 (>60 ml/min/1.73 sqM) Est GFR (CKD-EPI)NonAf >90 (>60 ml/min/1.73 sqM) Glucose 107 H (74-99) mg/dL Plasma Lactic Acid Adam (0.7-2.0) mmol/L Calcium 9.4 (8.4-10.2) mg/dL Total Bilirubin 0.6 (0.2-1.3) mg/dL AST 27 (17-59) U/L ALT 21 (4-49) U/L Alkaline Phosphatase 79 (38-126) U/L Total Protein 7.5 (6.3-8.2) g/dL Albumin 4.4 (3.5-5.0) g/dL Lipase 84 (23-300) U/L Urine Color Yellow Urine Appearance Clear (Clear) Urine pH 5.5 (5.0-8.0) Ur Specific [place] 1.024 (1.001-1.035) Urine Protein Trace H (Negative) Urine Glucose (UA) Negative (Negative) Urine Ketones Trace H (Negative) Urine Blood Negative (Negative) Urine Nitrite Negative (Negative) Urine Bilirubin Negative (Negative) Urine Urobilinogen <2.0 (<2.0) mg/dL Ur Leukocyte Esterase Negative (Negative) 10/13/21 Range/Units 21:16 WBC (3.8-10.6) k/uL RBC (4.30-5.90) m/uL Hgb (13.0-17.5) gm/dL Hct (39.0-53.0) % MCV (80.0-100.0) fL MCH (25.0-35.0) pg MCHC (31.0-37.0) g/dL RDW (11.5-15.5) % Plt Count (150-450) k/uL MPV Neutrophils % % Lymphocytes % % Monocytes % % Eosinophils % % Basophils % % Neutrophils # (1.3-7.7) k/uL Lymphocytes # (1.0-4.8) k/uL Monocytes # (0-1.0) k/uL Eosinophils # (0-0.7) k/uL Basophils # (0-0.2) k/uL Sodium (137-145) mmol/L Potassium (3.5-5.1) mmol/L Chloride (98-107) mmol/L Carbon Dioxide (22-30) mmol/L Anion Gap mmol/L BUN (9-20) mg/dL Creatinine (0.66-1.25) mg/dL Est GFR (CKD-EPI)AfAm (>60 ml/min/1.73 sqM) Est GFR (CKD-EPI)NonAf (>60 ml/min/1.73 sqM) Glucose (74-99) mg/dL Plasma Lactic Acid Adam 1.1 (0.7-2.0) mmol/L Calcium (8.4-10.2) mg/dL Total Bilirubin (0.2-1.3) mg/dL AST (17-59) U/L ALT (4-49) U/L Alkaline Phosphatase (38-126) U/L Total Protein (6.3-8.2) g/dL Albumin (3.5-5.0) g/dL Lipase (23-300) U/L Urine Color Urine Appearance (Clear) Urine pH (5.0-8.0) Ur Specific [place] (1.001-1.035) Urine Protein (Negative) Urine Glucose (UA) (Negative) Urine Ketones (Negative) Urine Blood (Negative) Urine Nitrite (Negative) Urine Bilirubin (Negative) Urine Urobilinogen (<2.0) mg/dL Ur Leukocyte Esterase (Negative) - Radiology Data Noncontrast CT abdomen/pelvis: Acute uncomplicated sigmoid colon diverticulitis. Disposition Clinical Impression: Abdominal pain, Acute diverticulitis Disposition: HOME SELF-CARE Condition: Stable Instructions (If sedation given, give patient instructions): Diverticulitis (ED), Abdominal Pain (ED) Additional Instructions: Return to the ER immediately should you develop new or worsening pain, a fever, persistent vomiting, feeling dizzy or faint, shortness of breath, or new or worsening symptoms. Follow up closely with your primary care provider. Is patient prescribed a controlled substance at d/c from ED?: No Referrals: Domo Zarco MD [Primary Care Provider] - 1-2 days Time of Disposition: 22:06
[2021-10-13 21:29] LABS: Basophils % (A) 0 %; Eosinophils # (A) 0.1 k/uL (0-0.7); Eosinophils % (A) 1 %; HCT 44.4 % (39.0-53.0); HGB 14.8 gm/dL (13.0-17.5); Lymphocytes # (A) 1.6 k/uL (1.0-4.8); Lymphocytes % (A) 13 %; MCH 30.1 pg (25.0-35.0); MCHC 33.4 g/dL (31.0-37.0); MCV 90.1 fL (80.0-100.0); Mean Platelet Volume 6.9; Monocytes # (A) 0.7 k/uL (0-1.0); Monocytes % (A) 6 %; Neutrophils # (A) 9.3 k/uL (1.3-7.7); Neutrophils % (A) 78 %; Platelet Count 312 k/uL (150-450); RBC 4.93 m/uL (4.30-5.90); RDW 12.4 % (11.5-15.5); WBC 11.9 k/uL (3.8-10.6)
[2021-10-13 21:32] LABS: Appearance,Urine Clear (Clear); Bilirubin,Urine Negative (Negative); Blood,Urine Negative (Negative); Color,Urine Yellow; Glucose,Urine (UA) Negative (Negative); Ketones,Urine Trace (Negative); Leukocyte Esterase,Urine Negative (Negative); Nitrite,Urine Negative (Negative); PH, Urine 5.5 (5.0-8.0); Protein,Urine Trace (Negative); Specific Gravity,Urine 1.024 (1.001-1.035); Urobilinogen,Urine <2.0 mg/dL (<2.0)
--- NOTE | 2021-10-13 21:35 | CT ---
EXAMINATION TYPE: CT abdomen pelvis wo con CT DLP: 500.7 mGycm, Automated exposure control for dose reduction was used. DATE OF EXAM: 10/13/2021 9:27 PM COMPARISON: None. CLINICAL INDICATION:Male, 61 years old with history of lower abdominal pain; TECHNIQUE: Standard CT of the abdomen and pelvis without IV or oral contrast. Lack of IV or oral co ntrast limits evaluation of solid and hollow organ viscera. Coronal and sagittal reformats were perfo rmed. FINDINGS: LOWER CHEST: Unremarkable ABDOMEN LIVER: Unremarkable GALLBLADDER AND BILE DUCTS: Unremarkable. PANCREAS: Unremarkable. SPLEEN: Unremarkable. ADRENAL GLANDS: Unremarkable. KIDNEYS AND URETERS: No evidence of hydronephrosis or renal calculus. The ureters are unremarkable. PELVIS BLADDER: Unremarkable REPRODUCTIVE: Unremarkable. ABDOMEN & PELVIS STOMACH AND BOWEL: Colonic diverticula within the sigmoid colon with surrounding stranding changes ar e present. No evidence of organizing fluid collection or microperforation. No evidence of bowel obstr uction. PERITONEUM: No evidence of pneumoperitoneum or free fluid. VASCULATURE: Mild atherosclerotic calcifications are present throughout the abdominal aorta and its b ranches. L4-L5 disc bulge. MUSCULOSKELETAL: Mild disc degeneration changes are present throughout the thoracolumbar spine. LYMPH NODES: No gross evidence for lymphadenopathy. SOFT TISSUE/ABDOMINAL WALL: Unremarkable IMPRESSION: Acute uncomplicated sigmoid colon diverticulitis.
[2021-10-13 21:41] LABS: ALT 21 U/L (4-49); AST 27 U/L (17-59); African American GFR (CKD) >90 (>60 ml/min/1.73 sqM); Albumin 4.4 g/dL (3.5-5.0); Alkaline Phosphatase 79 U/L (38-126); Anion Gap 10 mmol/L; Blood Urea Nitrogen 12 mg/dL (9-20); Calcium 9.4 mg/dL (8.4-10.2); Carbon Dioxide 24 mmol/L (22-30); Chloride 102 mmol/L (98-107); Glucose 107 mg/dL (74-99); Lipase 84 U/L (23-300); Non-African American GFR(CKD) >90 (>60 ml/min/1.73 sqM); Potassium 4.1 mmol/L (3.5-5.1); Sodium 136 mmol/L (137-145); Total Bilirubin 0.6 mg/dL (0.2-1.3); Total Protein 7.5 g/dL (6.3-8.2)
[2021-10-13] MEDS ORDERED: metroNIDAZOLE-NS PMX 500 MG in SALINE 1 100ML.BAG IVPB STA (21:57)
[2021-10-13] MEDS ORDERED: CIPROFLOXACIN HCL 500 MG TAB PO STA (21:58)
[2021-10-13] MEDS ORDERED: ONDANSETRON 4 MG ODT STARTER PACK 2 TAB BTL PO STA (21:58)
[2021-10-13] MEDS ORDERED: ACET/COD 300 MG/30 MG STARTER PACK 6 TAB BTL PO STA (21:58)
[2021-10-13 22:18] VITALS: BP 130/91; PULSE 76; RESP 20; TEMP 98.9
== END 2021-10-13 23:30 | disposition home or self-care (01) ==
LOC: EC 19:47
DX: K57.32 Diverticulitis of large intestine without perforation or abscess without bleeding (principal); J44.9 Chronic obstructive pulmonary disease, unspecified; F12.90 Cannabis use, unspecified, uncomplicated; Z87.891 Personal history of nicotine dependence; Z79.51 Long term (current) use of inhaled steroids
CPT/HCPCS: 36415; 80053; 83605; 83690; 85025; 81003; 74176; 99284; 96365; S0119

== ENCOUNTER 2022-10-24 02:23 | Emergency (ER) | payer OTHER ==
[2022-10-24 02:30] VITALS: TEMP 97.9
[2022-10-24] MEDS ORDERED: SODIUM CHLORIDE 0.9% 1,000 ML IV STA (02:46)
--- NOTE | 2022-10-24 02:52 | ED ---
General Adult HPI - General Source: patient, RN notes reviewed Mode of arrival: EMS Limitations: no limitations <Marycarmen Randall - Last Filed: 10/24/22 03:55> <Demian Cedillo - Last Filed: 10/24/22 06:37> - General Chief complaint: Back Pain/Injury Stated complaint: Lower Back Pain Time Seen by Provider: 10/24/22 02:31 - History of Present Illness Initial comments: Patient is a 62-year-old male presenting to the emergency room with complaints of left lower abdominal pain and left flank pain. He reports that the pain began initially as mild left lower back pain approximately 4 days ago with increased in intensity over the last few days to the point where the symptoms became severe earlier today. He reports similar abdominal pain symptoms when he had a diverticulitis flare but that symptoms seem more severe in the back region. He reports that he has previously been worked up for kidney stones but does not recall any previous diagnosis of kidney stone. Earlier in the month he underwent extensive evaluation in regards to swelling to the right side of his neck. He still has further chest pending but at this time preliminary testing indicates cystic-like mass around the right parathyroid. He denies any chest pain, shortness of breath, upper abdominal pain, nausea, vomiting, diarrhea, dysuria, hematuria, fevers or chills. In addition to his diverticulitis history he has a past medical history significant for COPD and pneumonia. (Marycarmen Randall) - Related Data Home Medications Medication Instructions Recorded Confirmed Albuterol Sulfate [Proair Hfa] 1 puff INHALATION RT-QID 10/13/21 10/13/21 Budesonide/Formoterol Fumarate 2 puff INHALATION RT-BID 10/13/21 10/13/21 [Symbicort 160-4.5 Mcg Inhaler] Previous Rx's Medication Instructions Recorded Ciprofloxacin HCl [Cipro] 500 mg PO Q12HR 10 Days #20 tablet 10/13/21 metroNIDAZOLE [Flagyl] 500 mg PO TID 10 Days #30 tab 10/13/21 Ibuprofen [Motrin] 800 mg PO Q8H #30 tab 10/24/22 methocarbamoL [Robaxin-750] 750 mg PO TID #30 tab 10/24/22 Allergies Allergy/AdvReac Type Severity Reaction Status Date / Time No Known Allergies Allergy Verified 10/13/21 21:32 Review of Systems ROS Other: All systems not noted in ROS Statement are negative. <Marycarmen Randall - Last Filed: 10/24/22 03:55> ROS Other: All systems not noted in ROS Statement are negative. <Demian Cedillo - Last Filed: 10/24/22 06:37> ROS Statement: Those systems with pertinent positive or pertinent negative responses have been documented in the HPI. Past Medical History Past Medical History: COPD, Pneumonia Additional Past Medical History / Comment(s): Chronic Bronchitis, mass on right side of neck awaiting on biopsy History of Any Multi-Drug Resistant Organisms: None Reported Past Surgical History: Appendectomy, Orthopedic Surgery Additional Past Surgical History / Comment(s): hand Past Anesthesia/Blood Transfusion Reactions: No Reported Reaction Past Psychological History: No Psychological Hx Reported Smoking Status: Former smoker Past Alcohol Use History: None Reported Past Drug Use History: Marijuana - Past Family History Father Family Medical History: No Reported History Mother Family Medical History: Cancer Additional Family Medical History / Comment(s): lung cancer Sister(s) Family Medical History: Asthma, COPD <Marycarmen Randall - Last Filed: 10/24/22 03:55> General Exam Limitations: no limitations <Marycarmen Randall - Last Filed: 10/24/22 03:55> - General Exam Comments Initial Comments: GENERAL: No acute distress, well developed, well nourished. HEENT: Normocephalic, atraumatic. Pupils equal, round, reactive to light. Moist mucous membranes. Mass noted to anterior right neck approximately 2 cm in diameter. Airway patent. LUNGS: No respiratory distress. Diminished bibasilar otherwise clear to auscultation, no adventitious sounds, no use of accessory muscles. HEART: Regular rate and rhythm without murmur, rub, or gallop. ABDOMEN: Normal bowel sounds. Soft, non-tender, non-distended. No guarding or rebound tenderness BACK: Normal inspection. Left CVA tenderness. No right CVA tenderness. EXTREMITIES: No edema. No tenderness. Moves all extremities. NEUROLOGIC: Alert & oriented x 3. CN II-XII grossly intact. PSYCHIATRIC: Normal affect and behavior. DERMATOLOGIC: Skin intact, without rashes or lesions noted. (Marycarmen Randall) Course Vital Signs 10/24/22 10/24/22 02:25 03:46 Temperature 97.9 F Pulse Rate 52 L 80 Respiratory 18 16 Rate Blood Pressure 117/72 104/69 O2 Sat by Pulse 97 100 Oximetry Medical Decision Making - Lab Data Result diagrams: 10/24/22 02:47 10/24/22 02:47 <Marycarmen Randall - Last Filed: 10/24/22 03:55> - Lab Data Result diagrams: 10/24/22 02:47 10/24/22 02:47 <Demian Cedlilo - Last Filed: 10/24/22 06:37> - Medical Decision Making Was pt. sent in by a medical professional or institution (, PA, RECORDER OF DEEDS, urgent care, hospital, or detention...) When possible be specific @ -No Did you speak to anyone other than the patient for history (EMS, parent, family, police, friend...)? What history was obtained from this source @ -No Did you review nursing and triage notes (agree or disagree)? Why? @ -I reviewed and agree with nursing and triage notes except patient also reports lower abdominal pain; pain level is much improved after medication by EMS. Were old charts reviewed (outside hosp., previous admission, EMS record, old EKG, old radiological studies, urgent care reports/EKG's, detention records)? Report findings @ -No old charts were reviewed Differential Diagnosis (chest pain, altered mental status, abdominal pain women, abdominal pain men, vaginal bleeding, weakness, fever, dyspnea, syncope, headache, dizziness, GI bleed, back pain, seizure, CVA, palpatations, mental health, musculoskeletal)? @ -Differential Back Pain: Strain, zoster, cauda equina syndrome, epidural abscess, vertebral osteomyel itis, discitis, fracture, subluxation, disc herniation, DJD, spinal stenosis, dissection, AAA, pancreatitis, peptic ulcer disease, pyelonephritis, kidney stone, this is not meant to be an all-inclusive list. Differential Abdominal Pain Men: Appendicitis, cholecystitis, diverticulosis, ischemic bowel, pancreatitis, hepatitis, UTI, gastroenteritis, AAA, incarcerated hernia, bowel obstruction, constipation, inflammatory bowel, hepatitis, peptic ulcer disease, splenic infarction, perforated viscus, testicular torsion, this is not meant to be an all-inclusive list EKG interpreted by me (3pts min.). @ -None done X-rays interpreted by me (1pt min.). @ -None done CT interpreted by me (1pt min.). @ -CT abdomen and pelvis without contrast: U/S interpreted by me (1pt. min.). @ -None done What testing was considered but not performed or refused? (CT, X-rays, U/S, labs)? Why? @ -None What meds were considered but not given or refused? Why? @ -Analgesics considered but deferred due to improvement of pain from fentanyl given by EMS. Did you discuss the management of the patient with other professionals (professionals i.e. , PA, RECORDER OF DEEDS, lab, RT, psych nurse, social work instructor, gas distribution plant operator, teacher, signals officer, employment case manager)? Give summary @ -No Was smoking cessation discussed for >3mins.? @ -No Was critical care preformed (if so, how long)? @ -No Were there social determinants of health that impacted care today? How? (Homelessness, low income, unemployed, alcoholism, drug addiction, transportation, low edu. Level, literacy, decrease access to med. care, fdc, rehab)? @ -No Was there de-escalation of care discussed even if they declined (Discuss DNR or withdrawal of care, Hospice)? DNR status @ -No What co-morbidities impacted this encounter? (DM, HTN, Smoking, COPD, CAD, Cancer, CVA, ARF, Chemo, Hep., AIDS, mental health diagnosis, sleep apnea, morbid obesity)? @ -None Was patient admitted / discharged? Hospital course, mention meds given and route, prescriptions, significant lab abnormalities, going to OR and other pertinent info. @ -62-year-old male presenting to the emergency room with complaints of left lower abdominal pain and left flank pain. He reports that the pain began initially as mild left lower back pain approximately 4 days ago with increased in intensity over the last few days to the point where the symptoms became severe earlier today. Will begin workup for abdominal pain and back pain with CBC, CMP, amylase, lipase along with urinalysis and lactic acid. Will give additional 1 L fluid bolus. Will obtain CT of the abdomen and pelvis without contrast. Awaiting urinalysis, CBC, CMP demonstrates slightly elevated glucose and low BUN no other abnormalities, liver enzymes, amylase and lipase all normal. Awaiting computed tomography scan results. Pain returned will give morphine. Case discussed with and transferred to Dr. Cedillo for further evaluation and treatment along with dispo. (Marycarmen Randall) The patient was signed out to me pending laboratory workup completion as well as imaging. All laboratory workup was within normal limits. Significant delay was experience while waiting for the official radiology read. CT of the abdomen and pelvis with contrast was obtained and was interpreted by myself showing no acute process. The patient continued to remain stable and on reevaluation, the patient stated that his symptoms had improved. The patient did state that when he does get up and move around he has shooting spasms on the left lower back. The patient's symptoms are likely secondary to muscle spasms and the patient was given a prescription for Robaxin and Motrin. The patient was advised to continue to monitor symptoms and to report back to the emergency department if they became acutely worse. The patient was agreeable to this and all his questions were answered. The patient was discharged home in stable condition. SUPERVISORY NOTE: I have reviewed all documentation, results, and performed the MDM in its entirety, which constitutes a substantive portion of the visit. (Demian Cedillo) - Lab Data Lab Results 10/24/22 10/24/22 10/24/22 Range/Units 02:47 02:47 02:47 WBC 8.1 (3.8-10.6) k/uL RBC 4.40 (4.30-5.90) m/uL Hgb 13.2 (13.0-17.5) gm/dL Hct 38.4 L (39.0-53.0) % MCV 87.3 (80.0-100.0) fL MCH 30.0 (25.0-35.0) pg MCHC 34.3 (31.0-37.0) g/dL RDW 12.4 (11.5-15.5) % Plt Count 312 (150-450) k/uL MPV 7.5 Neutrophils % 49 % Lymphocytes % 35 % Monocytes % 9 % Eosinophils % 3 % Basophils % 0 % Neutrophils # 4.0 (1.3-7.7) k/uL Lymphocytes # 2.9 (1.0-4.8) k/uL Monocytes # 0.7 (0-1.0) k/uL Eosinophils # 0.3 (0-0.7) k/uL Basophils # 0.0 (0-0.2) k/uL Sodium 138 (137-145) mmol/L Potassium 3.9 (3.5-5.1) mmol/L Chloride 107 (98-107) mmol/L Carbon Dioxide 26 (22-30) mmol/L Anion Gap 5 mmol/L BUN 12 (9-20) mg/dL Creatinine 0.56 L (0.66-1.25) mg/dL Est GFR (CKD-EPI)AfAm >90 (>60 ml/min/1.73 sqM) Est GFR (CKD-EPI)NonAf >90 (>60 ml/min/1.73 sqM) Glucose 100 H (74-99) mg/dL Plasma Lactic Acid Adam 0.8 (0.7-2.0) mmol/L Calcium 8.8 (8.4-10.2) mg/dL Total Bilirubin 0.3 (0.2-1.3) mg/dL AST 24 (17-59) U/L ALT 19 (4-49) U/L Alkaline Phosphatase 90 (38-126) U/L Total Protein 6.6 (6.3-8.2) g/dL Albumin 3.8 (3.5-5.0) g/dL Amylase 48 (30-110) U/L Lipase 111 (23-300) U/L Urine Color Urine Appearance (Clear) Urine pH (5.0-8.0) Ur Specific [place] (1.001-1.035) Urine Protein (Negative) Urine Glucose (UA) (Negative) Urine Ketones (Negative) Urine Blood (Negative) Urine Nitrite (Negative) Urine Bilirubin (Negative) Urine Urobilinogen (<2.0) mg/dL Ur Leukocyte Esterase (Negative) Urine RBC (0-5) /hpf Urine WBC (0-5) /hpf Ur Squamous Epith Cells (0-4) /hpf Hyaline Casts (0-2) /lpf Urine Mucus (None) /hpf 10/24/22 Range/Units 03:51 WBC (3.8-10.6) k/uL RBC (4.30-5.90) m/uL Hgb (13.0-17.5) gm/dL Hct (39.0-53.0) % MCV (80.0-100.0) fL MCH (25.0-35.0) pg MCHC (31.0-37.0) g/dL RDW (11.5-15.5) % Plt Count (150-450) k/uL MPV Neutrophils % % Lymphocytes % % Monocytes % % Eosinophils % % Basophils % % Neutrophils # (1.3-7.7) k/uL Lymphocytes # (1.0-4.8) k/uL Monocytes # (0-1.0) k/uL Eosinophils # (0-0.7) k/uL Basophils # (0-0.2) k/uL Sodium (137-145) mmol/L Potassium (3.5-5.1) mmol/L Chloride (98-107) mmol/L Carbon Dioxide (22-30) mmol/L Anion Gap mmol/L BUN (9-20) mg/dL Creatinine (0.66-1.25) mg/dL Est GFR (CKD-EPI)AfAm (>60 ml/min/1.73 sqM) Est GFR (CKD-EPI)NonAf (>60 ml/min/1.73 sqM) Glucose (74-99) mg/dL Plasma Lactic Acid Adam (0.7-2.0) mmol/L Calcium (8.4-10.2) mg/dL Total Bilirubin (0.2-1.3) mg/dL AST (17-59) U/L ALT (4-49) U/L Alkaline Phosphatase (38-126) U/L Total Protein (6.3-8.2) g/dL Albumin (3.5-5.0) g/dL Amylase (30-110) U/L Lipase (23-300) U/L Urine Color Yellow Urine Appearance Clear (Clear) Urine pH 5.5 (5.0-8.0) Ur Specific [place] 1.036 H (1.001-1.035) Urine Protein 1+ H (Negative) Urine Glucose (UA) Negative (Negative) Urine Ketones Negative (Negative) Urine Blood Negative (Negative) Urine Nitrite Negative (Negative) Urine Bilirubin Negative (Negative) Urine Urobilinogen <2.0 (<2.0) mg/dL Ur Leukocyte Esterase Negative (Negative) Urine RBC <1 (0-5) /hpf Urine WBC 1 (0-5) /hpf Ur Squamous Epith Cells <1 (0-4) /hpf Hyaline Casts 29 H (0-2) /lpf Urine Mucus Many H (None) /hpf Disposition <Marycarmen Randall - Last Filed: 10/24/22 03:55> Is patient prescribed a controlled substance at d/c from ED?: No Time of Disposition: 06:30 <Demian Cedillo - Last Filed: 10/24/22 06:37> Clinical Impression: Low back pain, Muscle spasm Disposition: HOME SELF-CARE Condition: Stable Instructions (If sedation given, give patient instructions): Acute Low Back Pain (ED), Muscle Spasm (ED) Prescriptions: Ibuprofen [Motrin] 800 mg PO Q8H #30 tab methocarbamoL [Robaxin-750] 750 mg PO TID #30 tab Referrals: Domo Zarco MD [Primary Care Provider] - 1-2 days
[2022-10-24 03:00] LABS: Basophils % (A) 0 %; Eosinophils # (A) 0.3 k/uL (0-0.7); Eosinophils % (A) 3 %; HCT 38.4 % (39.0-53.0); HGB 13.2 gm/dL (13.0-17.5); Lymphocytes # (A) 2.9 k/uL (1.0-4.8); Lymphocytes % (A) 35 %; MCHC 34.3 g/dL (31.0-37.0); MCV 87.3 fL (80.0-100.0); Mean Platelet Volume 7.5; Monocytes # (A) 0.7 k/uL (0-1.0); Monocytes % (A) 9 %; Neutrophils % (A) 49 %; Platelet Count 312 k/uL (150-450); RDW 12.4 % (11.5-15.5); WBC 8.1 k/uL (3.8-10.6)
[2022-10-24 03:21] LABS: ALT 19 U/L (4-49); AST 24 U/L (17-59); African American GFR (CKD) >90 (>60 ml/min/1.73 sqM); Albumin 3.8 g/dL (3.5-5.0); Alkaline Phosphatase 90 U/L (38-126); Amylase 48 U/L (30-110); Anion Gap 5 mmol/L; Blood Urea Nitrogen 12 mg/dL (9-20); Calcium 8.8 mg/dL (8.4-10.2); Carbon Dioxide 26 mmol/L (22-30); Chloride 107 mmol/L (98-107); Glucose 100 mg/dL (74-99); Lipase 111 U/L (23-300); Non-African American GFR(CKD) >90 (>60 ml/min/1.73 sqM); Potassium 3.9 mmol/L (3.5-5.1); Sodium 138 mmol/L (137-145); Total Bilirubin 0.3 mg/dL (0.2-1.3); Total Protein 6.6 g/dL (6.3-8.2)
[2022-10-24] MEDS ORDERED: MORPHINE SULFATE 4 MG/ML SYRINGE IVP STA (03:55)
[2022-10-24 04:45] LABS: Appearance,Urine Clear (Clear); Bilirubin,Urine Negative (Negative); Blood,Urine Negative (Negative); Color,Urine Yellow; Glucose,Urine (UA) Negative (Negative); Hyaline Casts,Urine 29 /lpf (0-2); Ketones,Urine Negative (Negative); Leukocyte Esterase,Urine Negative (Negative); Mucus,Urine Many /hpf; Nitrite,Urine Negative (Negative); PH, Urine 5.5 (5.0-8.0); Protein,Urine 1+ (Negative); RBC,Urine <1 /hpf (0-5); Specific Gravity,Urine 1.036 (1.001-1.035); Squamous Epithelial Cell,Urine <1 /hpf (0-4); Urobilinogen,Urine <2.0 mg/dL (<2.0); WBC,Urine 1 /hpf (0-5)
--- NOTE | 2022-10-24 06:18 | CT ---
EXAMINATION TYPE: CT abdomen pelvis wo con CT DLP: 418 mGycm, Automated exposure control for dose reduction was used. DATE OF EXAM: 10/24/2022 3:07 AM COMPARISON: CT abdomen pelvis most recent from 10/13/2021 CLINICAL INDICATION:Male, 62 years old with history of abdominal pain/ flank pain; TECHNIQUE: Axial CT of the abdomen and pelvis. Sagittal and coronal reformats were created on a [employer] workstation. Contrast used: None Oral contrast used: None FINDINGS: LOWER CHEST: Unremarkable ABDOMEN LIVER: Unremarkable GALLBLADDER AND BILE DUCTS: Unremarkable. PANCREAS: Unremarkable. SPLEEN: Unremarkable. ADRENAL GLANDS: Unremarkable. KIDNEYS AND URETERS: No evidence of hydronephrosis or renal calculus. The ureters are unremarkable. Right renal cyst present. Right renal sinus calcification within the sinus fat noted within the [employer] cting system. PELVIS BLADDER: Nondistended bladder. REPRODUCTIVE: Prostate is enlarged in size measuring 4.8 cm in transverse dimension. ABDOMEN & PELVIS STOMACH AND BOWEL: No evidence of bowel obstruction. Appendix is not visualized. No secondary signs o f ascites. PERITONEUM/RETROPERITONEUM: No evidence of pneumoperitoneum or free fluid. VASCULATURE: Mild atherosclerotic calcifications are present throughout the abdominal aorta and its b ranches. No evidence of aortic aneurysm. MUSCULOSKELETAL: No acute osseous abnormalities LYMPH NODES: No gross evidence for lymphadenopathy. SOFT TISSUE/ABDOMINAL WALL: Unremarkable IMPRESSION: 1. No evidence for acute process. No renal calculus or obstructive uropathy visualized. No evidence of colitis/diverticulitis. 2. Prostatomegaly correlate serum PSA.
[2022-10-24 06:56] VITALS: BP 124/67; PULSE 72; RESP 18
== END 2022-10-24 06:55 | disposition home or self-care (01) ==
LOC: EC 02:23
DX: M54.50 Low back pain, unspecified (principal); M62.838 Other muscle spasm; J44.9 Chronic obstructive pulmonary disease, unspecified; Z87.891 Personal history of nicotine dependence; F12.90 Cannabis use, unspecified, uncomplicated; Z79.51 Long term (current) use of inhaled steroids
CPT/HCPCS: 36415; 80053; 82150; 83605; 83690; 85025; 81001; 74176; 99284; 96374; 96361; J2270

== ENCOUNTER → 2024-04-01 | Outpatient (CLI) | payer OTHER ==
[2024-04-01 15:00] LABS: HCT 39.8 % (39.6-50.0); HGB 13.4 g/dL (13.0-17.0); MCH 30.1 pg (27.0-32.0); MCHC 33.7 g/dL (32.0-37.0); MCV 89.4 FL (80.0-97.0); NRBC Per 100 WBC 0 X 10*3/uL (0.00-0.01); Platelet Count 274 X 10*3/uL (140-440); RBC 4.45 X 10*6/uL (4.40-5.60); RDW 13.2 % (11.5-14.5); WBC 5.43 X 10*3/uL (4.50-10.00)
[2024-04-01 15:26] LABS: NT-Pro-B-Type Natriuretic Pept 52 pg/mL (0-125)
[2024-04-01 15:35] LABS: ALT 28 U/L (10-49); AST 26 U/L (14-35); Albumin 4.2 g/dL (3.8-4.9); Albumin/Globulin Ratio 1.91 Ratio (1.60-3.17); Alkaline Phosphatase 71 U/L (41-126); Blood Urea Nitrogen 17.7 mg/dL (9.0-27.0); Calcium 9.8 mg/dL (8.7-10.3); Carbon Dioxide 26.2 mmol/L (21.6-31.8); Chloride 107 mmol/L (96-109); Globulin 2.2 g/dL (1.6-3.3); Glucose 103 mg/dL (70-110); Potassium 4.3 mmol/L (3.5-5.5); Sodium 144 mmol/L (135-145); Total Bilirubin <0.2 mg/dL (0.3-1.2); Total Protein 6.4 g/dL (6.2-8.2)
== END | disposition home or self-care (01) ==
LOC: LABWHC1 09:11
PROVIDERS: ATTEND Internal Medicine Interventional Cardiology
DX: I42.8 Other cardiomyopathies (principal)
CPT/HCPCS: 36415; 80053; 83880; 85027

== ENCOUNTER 2024-07-25 19:30 | Emergency (ER) | payer OTHER ==
[2024-07-25 19:36] VITALS: TEMP 97.7
--- NOTE | 2024-07-25 19:54 | ED ---
General Adult HPI - General Chief complaint: Shortness of Breath Stated complaint: SOB Time Seen by Provider: 07/25/24 19:38 Source: patient, RN notes reviewed Mode of arrival: wheelchair Limitations: no limitations - History of Present Illness Initial comments: 64-year-old male presents to the emergency department for evaluation of shortness of breath. Patient reports that this has been ongoing for multiple weeks. He states that it is worse when he wakes up in the morning and when he attempts to walk. He does report recently stopping his medications and inhalers for his COPD. He denies recent fever, chills. Denies any lower extremity edema. Denies chest pain. - Related Data Home Medications Medication Instructions Recorded Confirmed Albuterol Sulfate [Proair Hfa] 1 puff INHALATION RT-QID 10/13/21 10/13/21 Budesonide/Formoterol Fumarate 2 puff INHALATION RT-BID 10/13/21 10/13/21 [Symbicort 160-4.5 Mcg Inhaler] Previous Rx's Medication Instructions Recorded Ciprofloxacin HCl [Cipro] 500 mg PO Q12HR 10 Days #20 tablet 10/13/21 metroNIDAZOLE [Flagyl] 500 mg PO TID 10 Days #30 tab 10/13/21 Ibuprofen [Motrin] 800 mg PO Q8H #30 tab 10/24/22 methocarbamoL [Robaxin-750] 750 mg PO TID #30 tab 10/24/22 Albuterol Inhaler [Ventolin Hfa 1 - 2 puff INHALATION Q6H PRN #1 07/25/24 Inhaler] each Budesonide-Formot 160-4.5 Mcg 2 puff INHALATION BID #10.2 gm 07/25/24 [Symbicort 160-4.5 Mcg Inhaler] predniSONE [Deltasone] 20 mg PO BID #10 tab 07/25/24 Allergies Allergy/AdvReac Type Severity Reaction Status Date / Time No Known Allergies Allergy Verified 07/25/24 19:36 Review of Systems ROS Statement: Those systems with pertinent positive or pertinent negative responses have been documented in the HPI. ROS Other: All systems not noted in ROS Statement are negative. Past Medical History Past Medical History: Cancer, COPD, Pneumonia Additional Past Medical History / Comment(s): Chronic Bronchitis, right throat cancer History of Any Multi-Drug Resistant Organisms: None Reported Past Surgical History: Appendectomy, Orthopedic Surgery Additional Past Surgical History / Comment(s): hand Past Anesthesia/Blood Transfusion Reactions: No Reported Reaction Past Psychological History: No Psychological Hx Reported Smoking Status: Current some day smoker, Former smoker Past Alcohol Use History: None Reported Past Drug Use History: Marijuana - Past Family History Father Family Medical History: No Reported History Mother Family Medical History: Cancer Additional Family Medical History / Comment(s): lung cancer Sister(s) Family Medical History: Asthma, COPD General Exam Limitations: no limitations General appearance: alert, in no apparent distress Head exam: Present: atraumatic, normocephalic, normal inspection Eye exam: Present: normal appearance, PERRL, EOMI. Absent: scleral icterus, conjunctival injection, periorbital swelling ENT exam: Present: normal exam, mucous membranes moist Respiratory exam: Present: wheezes (mild at bases bilateral lungs). Absent: respiratory distress, rales, rhonchi, stridor Cardiovascular Exam: Present: regular rate, normal rhythm, normal heart sounds. Absent: systolic murmur, diastolic murmur, rubs, gallop, clicks Extremities exam: Present: normal inspection, full ROM, normal capillary refill. Absent: tenderness, pedal edema, joint swelling, calf tenderness Neurological exam: Present: alert, oriented X3 Psychiatric exam: Present: normal affect, normal mood Skin exam: Present: warm, dry, intact, normal color. Absent: rash Course Vital Signs 07/25/24 07/25/24 07/25/24 19:32 20:26 20:34 Temperature 97.7 F Pulse Rate 85 63 68 Respiratory 19 Rate Blood Pressure 125/84 O2 Sat by Pulse 96 Oximetry 07/25/24 22:08 Temperature Pulse Rate 57 L Respiratory 18 Rate Blood Pressure 115/72 O2 Sat by Pulse Oximetry Medical Decision Making - Medical Decision Making Was pt. sent in by a medical professional or institution (, PA, ELEVATOR CONSTRUCTOR SUPERVISOR, urgent care, hospital, or penitentiary...) When possible be specific @ -No Did you speak to anyone other than the patient for history (EMS, parent, family, police, friend...)? What history was obtained from this source @ -No Did you review nursing and triage notes (agree or disagree)? Why? @ -I reviewed and agree with nursing and triage notes Were old charts reviewed (outside hosp., previous admission, EMS record, old EKG, old radiological studies, urgent care reports/EKG's, penitentiary records)? Report findings @ -No old charts were reviewed Differential Diagnosis (chest pain, altered mental status, abdominal pain women, abdominal pain men, vaginal bleeding, weakness, fever, dyspnea, syncope, headache, dizziness, GI bleed, back pain, seizure, CVA, palpatations, mental health, musculoskeletal)? @ -Differential Dyspnea: Coronary syndrome, arrhythmia, tamponade, asthma, COPD, pulmonary embolism, pneumonia, pneumothorax, pulmonary effusion, anaphylaxis, diabetic ketoacidosis, flailed chest, pulmonary contusion, diaphragmatic rupture, anemia, neuromuscular, this is not meant to be an all-inclusive list. EKG interpreted by me (3pts min.). @ -EKG at 1941 shows sinus rhythm rate 80, MD 145, QRS 110, QTQTc 382/418 X-rays interpreted by me (1pt min.). @ -Chest x-ray shows no acute process CT interpreted by me (1pt min.). @ -None done U/S interpreted by me (1pt. min.). @ -None done What testing was considered but not performed or refused? (CT, X-rays, U/S, labs)? Why? @ -None What meds were considered but not given or refused? Why? @ -None Did you discuss the management of the patient with other professionals (professionals i.e. , PA, ELEVATOR CONSTRUCTOR SUPERVISOR, lab, RT, psych nurse, social media content manager, incubator machine operator, teacher, field crop technical officer, immigration case worker)? Give summary @ -No Was smoking cessation discussed for >3mins.? @ -No Was critical care preformed (if so, how long)? @ -No Were there social determinants of health that impacted care today? How? (Homelessness, low income, unemployed, alcoholism, drug addiction, transportation, low edu. Level, literacy, decrease access to med. care, longterm, rehab)? @ -No Was there de-escalation of care discussed even if they declined (Discuss DNR or withdrawal of care, Hospice)? DNR status @ -No What co-morbidities impacted this encounter? (DM, HTN, Smoking, COPD, CAD, Cancer, CVA, ARF, Chemo, Hep., AIDS, mental health diagnosis, sleep apnea, morbid obesity)? @ -None Was patient admitted / discharged? Hospital course, mention meds given and route , prescriptions, significant lab abnormalities, going to OR and other pertinent info. @ -Discharge. Patient sent to emergency department for evaluation of shortness of breath. Vital signs stable, patient's O2 saturation 96% on room air. Laboratory studies obtained revealing no significant leukocytosis, hemoglobin stable; normal coagulation studies, negative D-dimer. CMP on actionable, negative troponin. Chest x-ray obtained revealing no acute process. Patient was provided a DuoNeb treatment and a dose of Solu-Medrol in the emergency department reporting significant improvement in his symptoms. Advised patient to begin utilizing his inhalers again and follow-up with his gas and oil checker. He is understanding agreeable with plan. Patient stable at discharge. Case discussed with Dr. Boyer Undiagnosed new problem with uncertain prognosis? @ -No Drug Therapy requiring intensive monitoring for toxicity (Heparin, Nitro, Insulin, Cardizem)? @ -No Were any procedures done? @ -No Diagnosis/symptom? @ -COPD exacerbation Acute, or Chronic, or Acute on Chronic? @ -Acute Uncomplicated (without systemic symptoms) or Complicated (systemic symptoms)? @ -uncomplicated Side effects of treatment? @ -No Exacerbation, Progression, or Severe Exacerbation? @ -No Poses a threat to life or bodily function? How? (Chest pain, [place], [place], pneumonia, PE, COPD, DKA, ARF, appy, cholecystitis, CVA, Diverticulitis, Homicidal, Suicidal, threat to staff... and all critical care pts) @ -No - Lab Data Result diagrams: 07/25/24 20:05 07/25/24 20:05 Lab Results 07/25/24 07/25/24 07/25/24 Range/Units 20:05 20:05 20:05 WBC 7.5 (3.8-10.6) k/uL RBC 4.63 (4.30-5.90) m/uL Hgb 14.0 (13.0-17.5) gm/dL Hct 41.1 (39.0-53.0) % MCV 88.9 (80.0-100.0) fL MCH 30.2 (25.0-35.0) pg MCHC 34.0 (31.0-37.0) g/dL RDW 12.4 (11.5-15.5) % Plt Count 274 (150-450) k/uL MPV 6.6 Neutrophils % 63 % Lymphocytes % 20 % Monocytes % 8 % Eosinophils % 6 % Basophils % 1 % Neutrophils # 4.7 (1.3-7.7) k/uL Lymphocytes # 1.5 (1.0-4.8) k/uL Monocytes # 0.6 (0-1.0) k/uL Eosinophils # 0.5 (0-0.7) k/uL Basophils # 0.1 (0-0.2) k/uL PT 10.8 (10.0-12.5) sec INR 1.0 (<1.2) APTT 23.1 (22.0-30.0) sec D-Dimer (<0.60) mg/L FEU Sodium 137 (137-145) mmol/L Potassium 3.6 (3.5-5.1) mmol/L Chloride 101 (98-107) mmol/L Carbon Dioxide 27 (22-30) mmol/L Anion Gap 9 mmol/L BUN 14 (9-20) mg/dL Creatinine 0.68 (0.66-1.25) mg/dL Est GFR (CKD-EPI)AfAm >90 (>60 ml/min/1.73 sqM) Est GFR (CKD-EPI)NonAf >90 (>60 ml/min/1.73 sqM) Glucose 120 H (74-99) mg/dL Calcium 9.7 (8.4-10.2) mg/dL Total Bilirubin 0.3 (0.2-1.3) mg/dL AST 21 (17-59) U/L ALT 16 (4-49) U/L Alkaline Phosphatase 67 (38-126) U/L Troponin I (0.000-0.034) ng/mL Total Protein 6.6 (6.3-8.2) g/dL Albumin 3.9 (3.5-5.0) g/dL 07/25/24 07/25/24 Range/Units 20:05 20:05 WBC (3.8-10.6) k/uL RBC (4.30-5.90) m/uL Hgb (13.0-17.5) gm/dL Hct (39.0-53.0) % MCV (80.0-100.0) fL MCH (25.0-35.0) pg MCHC (31.0-37.0) g/dL RDW (11.5-15.5) % Plt Count (150-450) k/uL MPV Neutrophils % % Lymphocytes % % Monocytes % % Eosinophils % % Basophils % % Neutrophils # (1.3-7.7) k/uL Lymphocytes # (1.0-4.8) k/uL Monocytes # (0-1.0) k/uL Eosinophils # (0-0.7) k/uL Basophils # (0-0.2) k/uL PT (10.0-12.5) sec INR (<1.2) APTT (22.0-30.0) sec D-Dimer 0.23 (<0.60) mg/L FEU Sodium (137-145) mmol/L Potassium (3.5-5.1) mmol/L Chloride (98-107) mmol/L Carbon Dioxide (22-30) mmol/L Anion Gap mmol/L BUN (9-20) mg/dL Creatinine (0.66-1.25) mg/dL Est GFR (CKD-EPI)AfAm (>60 ml/min/1.73 sqM) Est GFR (CKD-EPI)NonAf (>60 ml/min/1.73 sqM) Glucose (74-99) mg/dL Calcium (8.4-10.2) mg/dL Total Bilirubin (0.2-1.3) mg/dL AST (17-59) U/L ALT (4-49) U/L Alkaline Phosphatase (38-126) U/L Troponin I <0.012 (0.000-0.034) ng/mL Total Protein (6.3-8.2) g/dL Albumin (3.5-5.0) g/dL Disposition Clinical Impression: COPD exacerbation Disposition: HOME SELF-CARE Condition: Stable Instructions (If sedation given, give patient instructions): COPD (Chronic Obstructive Pulmonary Disease) (ED) Additional Instructions: Please follow-up with your primary care provider. Return to the emergency department for new or worsening symptoms. Prescriptions: predniSONE [Deltasone] 20 mg PO BID #10 tab Budesonide-Formot 160-4.5 Mcg [Symbicort 160-4.5 Mcg Inhaler] 2 puff INHALATION BID #10.2 gm Albuterol Inhaler [Ventolin Hfa Inhaler] 1 - 2 puff INHALATION Q6H PRN #1 each PRN Reason: Shortness Of Breath Is patient prescribed a controlled substance at d/c from ED?: No Referrals: None,Stated [Primary Care Provider] - 1-2 days
[2024-07-25 20:16] LABS: Basophils # (A) 0.1 k/uL (0-0.2); Basophils % (A) 1 %; Eosinophils # (A) 0.5 k/uL (0-0.7); Eosinophils % (A) 6 %; HCT 41.1 % (39.0-53.0); Lymphocytes # (A) 1.5 k/uL (1.0-4.8); Lymphocytes % (A) 20 %; MCH 30.2 pg (25.0-35.0); MCV 88.9 fL (80.0-100.0); Mean Platelet Volume 6.6; Monocytes # (A) 0.6 k/uL (0-1.0); Monocytes % (A) 8 %; Neutrophils # (A) 4.7 k/uL (1.3-7.7); Neutrophils % (A) 63 %; Platelet Count 274 k/uL (150-450); RBC 4.63 m/uL (4.30-5.90); RDW 12.4 % (11.5-15.5); WBC 7.5 k/uL (3.8-10.6)
[2024-07-25 20:25] LABS: Partial Thromboplastin Time 23.1 sec (22.0-30.0); Prothrombin Time 10.8 sec (10.0-12.5)
[2024-07-25] MEDS: IPRATROPIUM-ALBUTEROL 3 ML NEB INHALATION STA (20:25)
[2024-07-25 20:27] LABS: ALT 16 U/L (4-49); AST 21 U/L (17-59); African American GFR (CKD) >90 (>60 ml/min/1.73 sqM); Albumin 3.9 g/dL (3.5-5.0); Alkaline Phosphatase 67 U/L (38-126); Anion Gap 9 mmol/L; Blood Urea Nitrogen 14 mg/dL (9-20); Calcium 9.7 mg/dL (8.4-10.2); Carbon Dioxide 27 mmol/L (22-30); Chloride 101 mmol/L (98-107); Glucose 120 mg/dL (74-99); Non-African American GFR(CKD) >90 (>60 ml/min/1.73 sqM); Potassium 3.6 mmol/L (3.5-5.1); Sodium 137 mmol/L (137-145); Total Bilirubin 0.3 mg/dL (0.2-1.3); Total Protein 6.6 g/dL (6.3-8.2)
[2024-07-25] MEDS: methylPREDNISolone SOD SUCCI 125 MG/2 ML VIAL IV STA (20:36)
--- NOTE | 2024-07-25 20:36 | XR ---
EXAMINATION TYPE: XR chest 2V DATE OF EXAM: 07/25/2024 8:16 PM CLINICAL INDICATION:Male, 64 years old with history of difficulty breathing; [facility] COMPARISON: Chest radiographs from chest radiograph 05/27/2023 TECHNIQUE: XR chest 2V Frontal view of the chest. FINDINGS: Lungs/Pleura: There is no evidence of pleural effusion, focal consolidation, or pneumothorax. Pulmonary vascularity: Unremarkable. Heart/mediastinum: Cardiomediastinal silhouette is unremarkable. Surgical clips are seen overlying t he right lung apex and right-sided neck Musculoskeletal: No acute osseous pathology. IMPRESSION: No acute cardiopulmonary disease/process. [facility], , 07/25/2024 8:33 PM
[2024-07-25 22:09] VITALS: BP 115/72; PULSE 57; RESP 18
== END 2024-07-25 22:09 | disposition home or self-care (01) ==
LOC: EC 19:30
DX: J44.1 Chronic obstructive pulmonary disease with (acute) exacerbation (principal); F17.200 Nicotine dependence, unspecified, uncomplicated
CPT/HCPCS: 36415; 94640; 93005; 85379; 80053; 84484; 85025; 85610; 85730; 71046; 99285; 96374; J2919